=== PATIENT | female | born 1970 | race Caucasian/White ===

== ENCOUNTER 2023-03-03 07:31 | Outpatient (CLI) | payer OTHER, SELFPAY | END 2023-03-03 07:32 | disposition home or self-care (01) | LOC: NFLDREF 03-04 11:14 | PROVIDERS: PCP Physician Assistant Medical; Referring Provider Physician Assistant Medical; Visit Provider Physician Assistant Medical | DX: R73.03 Prediabetes (principal); R79.89 Other specified abnormal findings of blood chemistry; Z13.6 Encounter for screening for cardiovascular disorders; Z13.29 Encounter for screening for other suspected endocrine disorder; Z13.9 Encounter for screening, unspecified | CPT/HCPCS: 80053; 80061; 82306; 84443 ==

== ENCOUNTER 2023-04-27 09:26 | Outpatient (CLI) | payer OTHER, SELFPAY | END 2023-04-27 09:27 | disposition home or self-care (01) | LOC: INJ CL 09:29 | PROVIDERS: PCP Physician Assistant Medical; Visit Provider Family Medicine | DX: M54.16 Radiculopathy, lumbar region (principal); M48.062 Spinal stenosis, lumbar region with neurogenic claudication | CPT/HCPCS: 64483; J1100; Q9966 ==

== ENCOUNTER 2023-06-23 14:42 | Outpatient (CLI) | payer OTHER, SELFPAY ==
--- NOTE | 2023-06-23 15:00 | CT_ITS ---
Patient: ANA SIM Facility:?[facility] Patient ID:?[id number] Site Patient ID:?[id number]. Site :?[id number] Study:?CT-Abdomen/Pelvis W/ 78CC ISOVUE 370-06/23/2023 4:07:03 PM Ordering Physician:TRAVIS Final Report: Indication: FREQUENT URINATION, ABD PAIN Technique: CT Abdomen/Pelvis W/ 78CC ISOVUE 370 Please note that all CT scans at this facility use dose modulation, iterative reconstruction, and/or weight-based dosing when appropriate to reduce radiation dose to as low as reasonably achievable. Comparison: None Findings: Visualized breast implants are intact. Dependent scarring is present in both lower lobes. Additional scarring within the right middle lobe. No pleural effusion. No suspicious intrahepatic lesion. Incidental fat deposition within the liver adjacent to the falciform ligament. Mild diffuse hepatic steatosis. Spleen is not enlarged. Splenules are incidentally noted. The pancreas is within normal limits. Gallbladder incompletely distended. No biliary obstruction or calcified gallstone. Adrenal glands are normal. 1 cm simple cyst posterior left kidney. Extrarenal pelvis on the right. No hydronephrosis or renal stone. The bladder is normal. Uterus is unremarkable. Normal ovaries. No free air, free fluid or adenopathy. The ureters are within normal limits. Increased stool is present within the right side of the colon. No bowel obstruction or inflammation. No fracture. Degenerative disc disease L2-3. Impression: No hydronephrosis or urinary tract stone. Normal bladder. Increased stool in the right colon could suggest constipation. No mechanical bowel obstruction or inflammatory change. Mild hepatic steatosis. Please note that all CT scans at this facility use dose modulation, iterative reconstruction, and/or weight-based dosing when appropriate to reduce radiation dose to as low as reasonably achievable. Dictated by Jose Hammonds MD @ 06/24/2023 9:31:35 AM Signed by:?Jose Hammonds MD @06/24/2023 9:31:35 AM (Electronic Signature)
== END 2023-06-23 14:43 | disposition home or self-care (01) ==
LOC: CT 14:43
PROVIDERS: PCP Physician Assistant Medical; Visit Provider Physician Assistant Medical
DX: R10.32 Left lower quadrant pain (principal); K76.0 Fatty (change of) liver, not elsewhere classified; R35.0 Frequency of micturition
CPT/HCPCS: 74177; Q9967

== ENCOUNTER 2023-06-29 09:07 | Outpatient (CLI) | payer OTHER, SELFPAY | END 2023-06-29 09:08 | disposition home or self-care (01) | PROVIDERS: PCP Physician Assistant Medical; Visit Provider Physician Assistant Medical | DX: N30.00 Acute cystitis without hematuria (principal); R73.03 Prediabetes; R79.89 Other specified abnormal findings of blood chemistry | CPT/HCPCS: 80053; 84443; 87086 ==

== ENCOUNTER 2023-07-13 09:32 | Outpatient (CLI) | payer OTHER, SELFPAY | END 2023-07-13 09:33 | disposition home or self-care (01) | LOC: INJ CL 09:33 | PROVIDERS: PCP Physician Assistant Medical; Visit Provider Family Medicine | DX: M54.16 Radiculopathy, lumbar region (principal); M48.062 Spinal stenosis, lumbar region with neurogenic claudication | CPT/HCPCS: 64483; J1100; Q9966 ==

== ENCOUNTER 2023-07-28 00:23 | Emergency (ER) | payer OTHER, SELFPAY ==
[2023-07-28 00:31] VITALS: BP 151/90; PULSE 67; RESP 16; TEMP 36.6; O2SAT 98; BMI 23.5
--- NOTE | 2023-07-28 00:59 | ED.GENADULT ---
HPI - General Adult General Chief complaint: Extremity Pain/Injury, Lower Stated complaint: Bump on foot(Right) Time Seen by Provider: 07/28/23 00:25 Source: patient Mode of arrival: ambulatory Limitations: no limitations History of Present Illness HPI narrative: Patient presents to the emergency department for intermittent pain for the last few weeks on the lateral right foot, no trauma or injury. Pain seems to be getting more consistent. She called the nurse line and was advised to come to the emergency department in the wee hours for this. Did not try taking any Tylenol or ibuprofen prior to coming to the ED. no prior history of foot surgery. She does have osteoarthritis in multiple sites including neck and lumbar spine. She states that she regularly exercises on a stationary bike about 45 minutes per day and does not wear any foot were of any kind with this. She does not wear shoes indoors. She has no history of gout, no pain at the base of the 5th metatarsal or the 1st metatarsal area, heel or hindfoot. Pain is located at the lateral midfoot, proximal and slightly dorsal to the base of the 5th metatarsal. Worse with direct palpation, pinpoint. No weakness, no ankle pain. She states that she does get some numbness in both feet but that is an ongoing issue which she believes is related to her lumbar spinal stenosis. No fever, redness, drainage or rash. Past medical history notable for migraines, lumbar and cervical stenosis. Home meds are gabapentin for migraine prevention, tripped hands p.r.n. and currently on a short course of prednisone for cervical stenosis. She also takes an oral contraceptive. ROS is notable for the musculoskeletal symptoms as described above, no other generalized, skin or neurological changes different than her baseline. Related Data Home Medications Medication Instructions Recorded Confirmed migrerelief PO DAILY 06/29/23 07/06/23 Previous Rx's Medication Instructions Recorded gabapentin 300 mg capsule 600 mg (2 x 300 mg) PO TID 90 days 02/25/23 #540 caps triamcinolone acetonide 0.1 % 1 applic topical BID #15 grams 03/31/23 topical cream cyclobenzaprine 10 mg tablet 10 mg PO .COMPLEX #10 tabs 07/06/23 tolterodine 2 mg capsule,extended 2 mg PO QDAY #30 caps 07/07/23 release 24 hr (Detrol LA) norethindrone (contraceptive) 0.35 0.35 mg PO QDAY #84 tabs 07/19/23 mg tablet (Kristina-BE) Allergies Allergy/AdvReac Type Severity Reaction Status Date / Time misoprostol Allergy Uncoded 07/06/23 14:13 PFSH PFS Surgical History History of trigger finger ?Z87.39 - Personal history of other diseases of the musculoskeletal system and connective tissue (ICD-10) History of breast augmentation ?Z98.82 - Breast implant status (ICD-10) History of eye surgery ?Z98.890 - Other specified postprocedural states (ICD-10) History of ?Z98.891 - History of uterine scar from previous surgery (ICD-10) Social History Smoking Status: Never smoker How often do you have a drink containing alcohol: never AUDIT-C Alcohol total score: 0 Non-prescribed substance use: denies use Little interest or pleasure in doing things: several days Feeling down, depressed, or hopeless: nearly every day Exam Const: Vital Signs, click to edit/add: Vital Signs - 24 hr 07/28/23 00:31 Temperature 97.9 F Pulse Rate [Pulse Oximeter] 67 Respiratory Rate 16 Blood Pressure [Ri ght Upper Arm] 151/90 H Pulse Oximetry 98 Oxygen Delivery Me thod Room Air Documenting provider has reviewed patient's vital signs: yes Other: Mildly anxious but appropriate, good historian. HENMT: Other: Lips appear acyanotic with no dryness or pallor. Eye: Other: Normal eye contact and visual gaze Resp: Common normals: normal respiratory effort Effort & inspection: able to speak in complete sentences Cardio: Other: 2+ dorsalis pedis pulses bilaterally with normal capillary refill in the feet Extremity: Other: Left ankle and foot with normal range of motion. Mild osteoarthritic changes at 1st MTP joint, slightly at 5th as well. Some bony prominences along midfoot consistent with some early osteoarthritic changes. Good pulses, normal toes otherwise. Right ankle with normal range of motion, no redness, swelling or effusion. Mild enlargement of right 1st and 5th MTP joints. Consistent with osteoarthritis changes. No warmth, redness or severe pain with palpation. Normal toes. Area in question is the point bony tenderness at the base of the 4th metatarsal. Bony prominence like the other areas but also tenderness to palpation over tendons with a scant amount of fluid. No bruising. No warmth. No deformity. Other areas of bony prominence in midfoot consistent with osteoarthritis similar to left side. No tenderness over plantar fascia or heel. Neuro: Motor exam: no movement abnormalities noted Psych: Attitude: engaged Insight: insight good Judgement: judgment good Skin: Common normals: no rashes or lesions noted General skin exam: no rashes or lesions noted Course Course ED Course: Differential diagnosis including stress fracture, tendinitis, ganglion cyst, osteoarthritis, gout, pseudogout, septic arthritis, among others. Suspect tendinitis, osteoarthritis could be a very small ganglion cyst but not clinically significant enough at this point to warrant additional workup. Counseled patient on findings. No red flags of any emergent conditions tonight. She is likely to have recurrent issues in this area due to the developing osteoarthritis changes in her feet which are very common in women her age. Counseled on alarm symptoms. Recommended Tylenol 1000 mg every 6 hours as needed for pain. Okay to use [id number] NSAID patches. I think her main remedy to improvement is going to be compression socks and appropriate supportive footwear, especially with exercise. She should try this for 4 weeks and if not improving, follow up with her primary care provider for additional workup, potentially arch supports, orthotics, PT referral and or Podiatry. She verbalizes understanding and agreement and declines pain medications here in the ED. Vital Signs Vital signs: Initial Vital Signs Temperature 97.9 F 07/28/23 00:31 Temperature Source Temporal Artery Scan 07/28/23 00:31 Pulse Rate 67 07/28/23 00:31 Respiratory Rate 16 07/28/23 00:31 Blood Pressure 151/90 H 07/28/23 00:31 Blood Pressure Mean 110 H 07/28/23 00:31 Blood Pressure Position Sitting 07/28/23 00:31 Pulse Oximetry 98 07/28/23 00:31 Oxygen Delivery Method Room Air 07/28/23 00:31 Vital Signs Temperature 97.9 F 07/28/23 00:31 Pulse Rate 67 07/28/23 00:31 Respiratory Rate 16 07/28/23 00:31 Blood Pressure 151/90 H 07/28/23 00:31 Pulse Oximetry 98 07/28/23 00:31 Oxygen Delivery Method Room Air 07/28/23 00:31 Temperature 97.9 F 07/28/23 00:31 Pulse Rate 67 07/28/23 00:31 Respiratory Rate 16 07/28/23 00:31 Blood Pressure 151/90 H 07/28/23 00:31 Pulse Oximetry 98 07/28/23 00:31 Oxygen Delivery Method Room Air 07/28/23 00:31 Discharge Plan Discharge Clinical Impression: Foot tendinitis, Osteoarthritis of foot Patient Disposition: Home, Self-Care Condition: Stable Instructions: Metatarsalgia (DC) Additional Instructions: As we discussed, you have inflammation and irritation of a tendon on the outside of your foot. This is often secondary to overuse and improper or lack of supportive footwear. There may be a very small ganglion cyst associated with this but I think the problem is more so that the tendon is being irritated over an area of bony enlargement from osteoarthritis. As discussed, I recommend Tylenol 1000 mg up to every 6 hours as needed for bothersome pain. It is okay to use topical muscle rubs or topical NSAIDs even while using prednisone. The arthritis in your foot is not reversible but your symptoms can be markedly better with good foot care. I strongly recommend that you start wearing appropriate supportive footwear with all athletic activities and basic loin trimmer. The shoes should have good arch support. Many with this condition fine compressive athletic socks helpful. I happen to be a big fan of the sock well brand. You do not need knee-high once, ankle or crew height are fine. I would recommend medium to heavy compression. If the pain is still bothersome with 4 weeks of these interventions, I would recommend you make a follow-up appointment with a primary care provider or a engineering operator to discuss further treatment options. Activity Level: Activity as Tolerated Discharge Diet: Regular Prescriptions: No Action triamcinolone acetonide 0.1 % cream 1 applic topical BID Qty: 15 0RF Rx Instructions: apply twice daily for 2 to 4 weeks to right foot migrerelief PO DAILY gabapentin 300 mg capsule 600 mg PO TID 90 Days Qty: 540 3RF cyclobenzaprine 10 mg tablet 10 mg PO .COMPLEX Qty: 10 0RF Rx Instructions: 10 mg orally 1 po at hs; tolterodine [Detrol LA] 2 mg capsule,extended release 24hr 2 mg PO QDAY Qty: 30 0RF norethindrone (contraceptive) [Kristina-BE] 0.35 mg tablet 0.35 mg PO QDAY Qty: 84 3RF Follow Up/Referrals: Agnes Fleming PA-C [Primary Care Provider] - Stand Alone Forms: [employer] Info Instructions
== END 2023-07-28 01:05 | disposition home or self-care (01) ==
LOC: ED 01:02
PROVIDERS: Emergency Provider Family Medicine; PCP Physician Assistant Medical
DX: M77.51 Other enthesopathy of right foot and ankle (principal); M19.071 Primary osteoarthritis, right ankle and foot
CPT/HCPCS: 99282; 99283

== ENCOUNTER 2023-08-19 09:44 | Outpatient (CLI) | payer OTHER, SELFPAY | END 2023-08-19 09:45 | disposition home or self-care (01) | PROVIDERS: PCP Physician Assistant Medical; Visit Provider Registered Nurse | DX: Z01.419 Encounter for gynecological examination (general) (routine) without abnormal findings (principal); Z83.2 Family history of diseases of the blood and blood-forming organs and certain disorders involving the immune mechanism; Z12.4 Encounter for screening for malignant neoplasm of cervix | CPT/HCPCS: 81240; 81241 ==

== ENCOUNTER 2023-09-08 10:30 | Outpatient (RCR) | payer OTHER, SELFPAY ==
--- NOTE | 2023-07-19 17:08 | PT.OPE ---
PT [facility] PT [facility] Out[facility] Eval Start: 07/19/23 13:22 Freq: Status: Active Protocol: Document 07/19/23 15:36 LSL (Rec: 07/19/23 17:03 LSL [id number]) E-signed By Marie Howell PT Physical Therapy Outpatient Evaluation Insurance Information Recert Due Date 10/17/23 Insurance Name Medicaid,[facility] Medical Diagnosis cervical radiculopathy, cervicalgia Referring MD Naveen Garrison PA-C Subjective Subjective Pt. reports insidious onset of a zappy numbness or sharp pain down the arm. Positions with arm abducted and hor abducted or ER reproduce that pain. Seeing Dr. Rizzo tomorrow for her neck. She has been seeing him for her LB and legs. Pt. is R hand dominant. Symptoms are transient and last about a minute. Has not noticed any strength loss in her hand. My entire adult life I get an aura and see farooq when I shave my L armpit so I just try and do it without looking. Date of Last Physician Visit 07/06/23 Current Work Status Unemployed Precautions Weight Bearing Status Full Weight Bearing Objective Range of Motion AROM Cervical flexion WNL, B LF 50% with pain in the neck and upper back, extension 80% with pain in the neck, L rotation 30%, R rotation 40% Shoulders WFL Strength Cervical all 5/5 with twinge in L C-T junction paraspinals on R rotation Shoulder - L elbow, wrist 5/5, L supraspinatus 3+/5, R 4-/5, horizontal abduction and adduction 4+/5, deltoid 4/5 ROUTE DRIVER L 65/66/59 pounds of pressure R 60/55/59 pounds of pressure PINCH L 11/10/10.5 pounds of pressure R 10/9/8.5 pounds of pressure Palpation L scalenes, L UT, L cervical paraspinals tender and L subscap tight and tender Posture decreased kyphosis Sensation/Reflexes Compression and distraction negative Reflexes - intact L UE Assessment Assessment/Impression Pt. is a 52 y/o female who presents with decreased curvature in the upper thoracic spine which may be attributable to age related degenerative changes with tightness in the L cervical and thoracic region and weakness in the L supraspinatus and tightness in the R subscapularis both of which may be contributing to radicular symptoms. These symptoms are currently very intermittent and there is no correlated weakness. She has a history of cervical issues and migraines. Currently it appears that some weakness in the L RC is contributing to some tension in the scapulothoracic/cervical musculature which is pulling on her cervical spine and potentially creating some radicular symptoms. They are transitory and should respond well to a combination of mobility and strength exercises, with manual therapy for soft tissue and joint mobilization. Primary Functional Limitations looking down and to left, reaching out to the side with L arm Plan of Care Rehabilitation Potential Good Physical Therapy Goals SHORT TERM GOALS: (4 weeks) 1. Pt. to report decreased symptoms into L UE with reaching to her side to less than 1x/day. 2. Decreased tension in the L subscap to allow decreased pain going into abducted ER. LONGTERM GOALS: (6+ weeks) 1. Pt. to have 5/5 L RC strength to decrease tension into L cervical region when reaching. 2. Pt. able to look down and to the left without dizziness or farooq. Coordination/Communication With Referral Source Treatment Plan/Direct Interventions Joint Mobilization,Manual Therapy,Self-Care/Home Management,Therapeutic Exercises Frequency/Duration 1x/week 4 weeks to start potentially extending to 6 weeks or 2x/week Patient Will Be Discharged From Therapy Completion of LTG(s),Skills Plateau,Independent w/HEP, Independently Progressing Evaluation Billing Untimed Code Treatment Minutes 40 Complexity Low Certification Information Initial Certification Date 07/19/23 Ending Certification Date 10/17/23 Provider Signature Shows Agreement With POC & Medical Necessity Physician Signature & Date Requested Please Sign/Date Here Physician Comment/Change : Physician NPI Number #
== END 2023-09-08 12:15 | disposition home or self-care (01) ==
PROVIDERS: PCP Physician Assistant Medical; Visit Provider Physician Assistant
DX: M54.12 Radiculopathy, cervical region (principal); M54.2 Cervicalgia; R53.1 Weakness; Z51.89 Encounter for other specified aftercare
CPT/HCPCS: 97110; 97140; 97161

== ENCOUNTER 2023-12-21 08:40 | Outpatient (CLI) | payer OTHER, SELFPAY ==
--- OUTSIDE RECORDS SUMMARY | 2023-12-21 08:42 | XMS_ITS | Continuity of Care Document ---
Author Organization [place] - [facility], [place] Address [address] [place] [address] Care Team Providers Care Sales Representative Livestock Name Role Phone TONIA YEPEZ Referring Provider [facility] Dentist [phone] HOUSTON ESPINOSA Primary Care Provider Assessment Encounter Date Assessment Date Assessment LastModified by Organization Details LastModified Time 09/30/2023 09/30/2023 Today I reviewed the diagnosis, contributing factors and treatment options. I reviewed and reinforced continued use of self care and jaw exercises. I encouraged daily home care use which may consist of heat and ice compresses, oral habit reduction and relaxation techniques. The intraoral appliance was adjusted to patient comfort. Specifically, I demonstrated and advanced the appliance by 1 mm bilaterally. Ruth reported it being comfortable to wear it. 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 Rehabilitation with physical therapy could be an options if TMD/muscular symptoms flared. History today was obtained from the patient. The patient has 5 diagnoses which we are addressing. Their symptoms are chronic. This case is moderate complexity because of multiple diagnoses with chronic symptoms. Risk of complications include monitoring for complications of treatment were discussed. Today time spent may have included a review of past records, history taking, review of diagnoses, contributing factors, treatment plan, diagnostic testing, prognosis, expectations, risks and complications of treatment/no treatment, discussions with other providers and completing documentation was 25 minutes. I suggested that (s)he return for follow-up care in 4 weeks. [email or web address] Not available 09/30/2023 22:39:18 Plan of Treatment Reminders Order Date Submit Date Provider Last Modified By Organization Details Last Modified Time Details Appointments None record ed. Lab None record ed. Referral None record ed. Procedures None record ed. Surgeries None record ed. Imaging None record ed. Medication Orders None record ed. Patient TargetsNo targets recorded. Patient InstructionsNo instructions recorded. Reason for Referral None Reported. 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 689538914765 96948 Active 2023 LIANNA Ma DDS,MS [address], [place], [address], [facility] 4 18:39:03 Pain of right temporoma ndibular joint 334925916504 22123 Active 2023 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 Procedures Surgical History Date Name Laterality Status Provider Name and Address Organization Details Recorded Time 07/01/19 24 Oral appliance therapy for sleep apnea completed Monse Hollins [facility] 06/30/2023 10:43:52 05/19/19 Orthopantogram completed LIANNA ISAAC DDS,MS [address], [place], [address], [facility] 05/19/2023 18:40:32 03/22/19 04 section completed Monse Hollins [facility] 05/19/2023 17:24:26 Breast augmentation w/implt completed Monse Hollins [facility] 05/19/2023 14:14:33 Imaging Results None recorded. Procedure Notes None recorded. Medical Equipment None Reported. Allergies Allergen ID Allergen Name Allergen Category Reaction Reaction Severity Criticality Documentation Date Start Date Code Code System Note Provider Name and Address Organization Details Recorded Time 91006 misoprost ol medicatio n Not available Not available Not available 05/19/2023 66283 RxNorm Monse Hollins [facility] 14:11:52 Medications Name Sig Start Date Stop Date Status Note LastModified by Organization Details LastModified Time tolterodine ER 2 mg capsule,ext ended release 24 hr TAKE ONE CAPSULE BY MOUTH EVERY DAY 08/29 completed Not Available Not Available Not Available cyclobenzap rine 10 mg tablet TAKE ONE TABLET BY MOUTH EVERY DAY AT BEDTIME 08/03 completed Not Available Not Available Not Available sumatriptan 100 mg tablet TAKE 1 TABLET BY MOUTH AT ONSET OF HEADACHE. IF NO RELIEF, MAY REPEAT 1 TABLET AFTER AT LEAST 2 HOURS (MAX 2 IN 24HRS) active Not Available Not Available No t Available prednisone 20 mg tablet TAKE TWO TABLETS BY MOUTH EVERY DAY FOR 5 DAYS active Not Available Not Available No t Available triamcinolo ne acetonide 0.1 % topical cream APPLY CREAM TOPICALLY TO RIGHT FOOT TWICE DAILY FOR 2-4 WEEKS active Not Available Not Available No t Available cephalexin 500 mg capsule TAKE ONE CAPSULE BY MOUTH TWICE A DAY FOR 7 DAYS 08/03 completed Not Available Not Available Not Available oxybutynin chloride ER 5 mg tablet,exte nded release 24 hr TAKE ONE TABLET BY MOUTH EVERY DAY 08/29 completed Not Available Not Available Not Available gabapentin 300 mg capsule TAKE 2 CAPSULES BY MOUTH THREE TIMES DAILY FOR 90 DAYS active Not Available Not Available No t Available norethindro ne (contracept олег) 0.35 mg tablet TAKE ONE TABLET BY MOUTH EVERY DAY 09/29 completed Not Available Not Available Not Available sumatriptan active Not Available Not A vailable Not Available Vitals Date Recorded Body height Body mass index (BMI) Body weight Systolic blood pressure Diastolic blood pressure Provider Name and Address Organization Details Last Updated DateTime 09/30/2023 165.1 cm 25.8 kg/m2 47930.82 g 114 mm[Hg] 78 mm[Hg] Linh Saenz [facility] 10:09:08 Social History Question Answer Notes LastModified by Organizat ion Details LastModified Time Tobacco Smoking Status [facility] 05/19/2023 17:24:03 What Is Your Level Of Alcohol Consumption? None Information not available 05/19/2023 What Is Your Level Of Caffeine Consumption? Moderate [email or web address] Information not available 05/19/2023 Are You Currently Employed? No Information not available 05/19/2023 What Type Of Diet Are You Following? REGULAR [email or web address] Information not available 05/19/2023 What Is The Highest Grade Or Level Of School You Have Completed Or The Highest Degree You Have Received? [id number] [email or web address] Information not available 05/19/2023 What Is Your Relationship Status? Single [email or web address] Information not available 05/19/2023 Sex: Unknown Functional Status Question Answer Note LastModified by Organization D etails LastModified Time What is your exercise level? Moderate [email or web address] Information not available 05/19/2023 Mental Status None recorded. Family History Relationship Description Onset Age of this Age Resolved Age Notes LastModified by Organization Details LastModified Time Father Arthritis Not availab le 05/19/2023 17:22:49 Father Heart disease [email or web address] Not available 2023 17:23:01 Father Rheumatoid arthritis Not available 2023 17:23:19 Mother Hypertensive disorder [email or web address] Not available 2023 17:23:08 Medical History Condition Response Coronary Artery Disease N Other Y Gout N Chronic fatigue syndrome N Hyperthyroidism N Premenstrual syndrome (PMS) N MRSA N Emphysema N Head Trauma/Injury N Irritable bowel syndrome N COPD N Depression Y Glaucoma N Lung Disease N Hypothyroidism N Pneumonia N Pacemaker N Orthopedic Problems N Obstructive Sleep Apnea Y Anxiety Disorder N Muscle, Joint, or Bone Problems N Autoimmune disease N Vision or Eye Problems N Arthritis N Serious Illness or Injuries N Acid Reflux (GERD) N Cancer N Stroke N Neck Injury N Eating disorder N Back Injury N High Cholesterol N Neurologic Disorder N History of chemotherapy N Liver Disease N Organ Transplant N Rheumatoid Arthritis N Fibromyalgia N Headaches Y Kidney Disease N Allergies/Hayfever N Post traumatic stress disorder (PTSD) N Parkinson's Disease N Migraines Y Thyroid Problems N Brain Tumors N Anemia N Multiple Sclerosis N Immune System Disorder N Meningitis N Pancreatic disease N Heart Attack (NM) N Stomach Ulcers N Diabetes N Back pain Y Bleeding Disorder N Seizures/Epilepsy N Sjogren's syndrome N Tuberculosis N AIDS/HIV N Hyperlipidemia N History of radiation therapy N Dementia N Asthma N Physical or sexual abuse N Substance Abuse N Psoriasis N Peripheral Vascular Disease N Reflux/GERD N Mental Problems N Vertigo N Sleep Disorder N GERD/Reflux N Hepatitis N Aneurysm N Neuropathy N Heart Disease N Pulmonary Embolism N Hypertension N Osteoporosis N Gynecological HistoryNo gynecological history recorded. Obstetrics History GPAL:G 0 P 0 0 0 0 Past Encounters Encounter ID Performer Location Encounter Start Date Encounter Closed Date Diagnosis/Indication Diagnosis SNOMED-CT Code Diagnosis ICD10 Code [id number] LIANNA ISAAC DDS,MS George javed [address] [place] [address] 09/30/2023 09:59:51 09/30/2023 10:28:35 Obstructive sleep apnea syndrome 49580323 G47.33 Myofascial pain 51429143 9 M79.11 Pain of ri ght temporomandibular joint 0627524768 7783074 M26.621 Bilateral temporomandibular joint articular disc disorder 7878928083 6380974 M26.633 Snoring 00275339 R06.83 Health Concerns Section Related Observation LastModified by Organization Detai ls LastModified Time None Recorded Concern Status LastModified by Organization Details LastModified Time None Recorded Payers Encounter Date Sequence Insurance Name Policy Number Policy Miller Covered Member ID Miller Member ID Guarantor Name 09/30/2023 1 [place] [facility] [id number] Ruth Ohara [id number] Ruth Ohara Notes Date Note Type Note Provider Name and Address Organization Details Recorded Time 09/30/2023 text/html HPI Notes: Sleep Apnea Reported by patient. Severity/status: moderate; severity of apnea: AHI=16.7; date of last [id number]; respiratory disturbance index (RDI)= 18.6; lowest oxygen saturation 80-91% 84; MICH-8.3 Onset/Timing: long standing Prior History no hypertension temporomandibular joint symptoms no temporomandibular joint symptoms Interference: no loud snoring; no witnessed apnea; no gasping for air; limits daily activities; morning tiredness/fatigue Context: lack of adequate sleep; currently taking medication to help sleep; irregular sleep hours Alleviating factors: nothing gives relief; no relief by changing position Aggravating factors: nothing makes it worse; medical problems affecting sleep pain (migraines) Associated Symptoms: morning headache; drip or drainage down throat from above; excessive sleepiness during the day; poor concentration; impaired work performance; nasal congestion; likelihood of falling asleep during the day while sitting and reading 1; likelihood of falling asleep during the day while watching television 1; likelihood of falling asleep during the day while sitting inactive in a public place 3; likelihood of falling asleep during the day as passenger in car for extended time 3; likelihood of falling asleep during the day while lying down to rest in the afternoon 1; likelihood of falling asleep during the day while sitting and talking to someone 2; likelihood of falling asleep during the day while sitting quietly after lunch (no alcohol) 1; likelihood of falling asleep during the day in a car while stopped in traffic 1 Prior opinion ENT Prior Tests: home sleep study Patient presents today for follow-up. (S)he is effectively using the mandibular advancement oral appliance. They note no changes in symptoms which along with prior data was reviewed, updated and documented in the patient history of present illness. Subjectively they believe the appliance to be partially effective in improving sleep quality. (S)he recognizes unchanged daytime tiredness and no improvement in restorative sleep. (S)he has mild side effects including jaw pain. (S)he is not using the morning bite real estate job titles as recommended. Adjustments to the oral appliance are not felt necessary. Ruht is present her for her third follow up after receiving her DELMI ([place]). She uses the appliance nightly without issues. Jaw pain has subsided and when it occurs is described as minimal jaw symptoms that resolve after a short period of time. 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 She does noticed that her jaw resets naturally. She denies dental occlusal changes and dental pain. She is doing home care exercises. [place] - 15 LIANNA ISAAC DDS,MS [address], [place], [address], [facility] 09/30/2023 22:40:22 OBGyn Episode No OBEpisode recorded.
--- OUTSIDE RECORDS SUMMARY | 2023-12-21 08:42 | XMS_ITS | Data Portability ---
Author Organization [place] [facility] Address [address] [address] Care Team Providers Care Volleyball Player Name Role Phone TONIA YEPEZ Referring Provider [facility] Dentist [phone] HOUSTON ESPINOSA Primary Care Provider [phone] Assessment Encounter Date Assessment Date Assessment LastModified by Organization Details LastModified Time 07/01/2023 07/01/2023 Patient was seen today for follow-up and insertion of a mandibular advancement (Somnomed [place] Advanced Elite) intraoral appliance. Diagnosis and contributing factors were reviewed. Questions were answered. Self-management and home exercise techniques were reviewed. Today the intraoral appliance was fit to patient comfort. Specifically, adjustments were made to reduce retention in the maxillary arch. Ruth reported it being comfortable to wear it. Instructions on proper use and care were discussed/reviewed both written and verbally. I suggested that (s)he uses the appliance 20-30 minutes before bed time, as a way to promote nasal breathing if possible. Potential side effects were reviewed. The patient was advised to discontinue oral appliance use should they experience untoward side effects or be unable to return for follow-up care. The patient was advised to return in 4 weeks to reassess their progress and continue their treatment plan as previously outlined. History today was obtained from the patient. The patient has 3 diagnoses they would like to address. Their symptoms are chronic. This case is low complexity because of limited diagnosis and chronic nature. Data reviewed included procedure documentation. Risk of complications include monitoring for complications of treatment were discussed. Today time spent may have included a review of past records, history taking, review of diagnoses, contributing factors, treatment plan, diagnostic testing, prognosis, expectations, risks and complications of treatment/no treatment, discussions with other providers and completing documentation was 30 minutes. Not available 07/01/2023 10:55:44 08/04/2023 08/04/2023 Today I reviewed the diagnosis, contributing factors and treatment options. I reviewed and reinforced continued use of self care and home exercises. I encouraged daily home care use which may consist of heat and ice compresses, oral habit reduction and relaxation techniques. The intraoral appliance was adjusted to patient comfort. Specifically, I demonstrated and advanced the appliance by 1 mm. Ruth reported it being comfortable to wear it. To manage her recent TMD/muscular symptoms, I have recommended self management treatment approach with home self-care, including heat compresses, simple jaw exercises including jaw stretch with relaxed breathing and masseter/lateral pterygoid self-release exercise. I also recommended that she try wearing the study abroad coordinator later in the day instead of first thing in the morning if it is causing pain, and to continue to take breaks from wearing the appliance. We will consider rehabilitation with physical therapy if symptoms are not improved with self-management treatment approach. History today was obtained from the patient. [...] return for follow-up care in 4 weeks. Not available 08/04/2023 19:14:53 08/30/2023 08/30/2023 Today I reviewed the diagnosis, contributing factors and treatment options. I reviewed and reinforced continued use of self care and home exercises. I encouraged daily home care use which may consist of heat and ice compresses, oral habit reduction and relaxation techniques. The intraoral appliance was adjusted to patient comfort. Specifically, I reduced the retention of the appliance in the region of tooth #31 since it was applying pressure to her dental crown.??Ruth??repo rted it being comfortable to wear it. We did not make advancements to the appliance today. To continue managing her TMD muscular symptoms, I encouraged??Ruth?? to be consistent with daily jaw exercises (including lateral pterygoid) and to try wearing the study abroad coordinator a few times during the day. She will continue to put the oral appliance in well before bed and practice nasal breathing with it. History today was obtained from the patient. [...] return for follow-up care in 4 weeks. Not available 08/30/2023 20:58:59 09/30/2023 09/30/2023 Today I reviewed the diagnosis, [...] weeks.??I recommended that she try wearing the study abroad coordinator later in the day instead of first [...] return for follow-up care in 4 weeks. Not available 09/30/2023 22:39:18 10/28/2023 10/28/2023 Today I reviewed the diagnosis, contributing factors and treatment options. I reviewed and reinforced continued use of self care and home exercises. I encouraged daily home care use which may consist of heat and ice compresses, oral habit reduction and relaxation techniques. The intraoral appliance did not require additional adjustment. It is set to 4 mm bilaterally. Ruth tried oral appliance therapy and developed jaw pain. Options to move forward were discussed including options to address the jaw pain (including rehabilitation with physical therapy) to allow for continued oral appliance use and discontinuation of oral appliance therapy and trial CPAP. Ruth has chosen to discontinue oral appliance and trial CPAP. She was advised to return to her sleep physician. Should she be unable to tolerate CPAP and would like to return to oral appliance she was invited to return at any time. In the meantime, I recommended continued home self-care as a way to manage her jaw symptoms. History today was obtained from the patient. [...] providers and completing documentation was 25 minutes. Not available 10/28/2023 10:52:35 Plan of Treatment Reminders Order Date Submit [...] Recorded Time Obstructi ve sleep apnea syndrome 67298757 Active 2023 Moderate VINNY (AHI - 16.7, RDI - 18.6, MICH - 8.3, Lowest Sa02: 84%, HST on 3) LIANNA Ma DDS,MS [address], [place], [address], 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 4 19:13:35 Myofascia l pain 119489048 Active 2023 masticato ry - secondary to use of oral sleep appliance LIANNA Ma DDS,MS [address], [place], [address], [facility] 4 19:13:29 Notes:Moderate VINNY AHI-16.7/ hr RDI-18.6/hr MICH-8.3/hr low O2 -84% sleep study 09-15-2022 Problem Notes None recorded. Procedures Surgical History Date Name Laterality Status Provider Name and Address Organization Details Recorded Time 07/01/19 24 Oral appliance therapy for sleep apnea completed Monse Hollins [facility] 06/30/2023 10:43:52 05/19/19 24 Orthopantogram completed LIANNA ISAAC DDS,MS [address], [place], [address], [facility] 05/19/2023 18:40:32 03/22/19 04 section completed Monse Leavittjolene [facility] 05/19/2023 17:24:26 Breast augmentation w/implt completed Monse Leavittjolene [facility] 05/19/2023 14:14:33 Imaging Results None recorded. Procedure Notes None recorded. Medical Equipment None Reported. Allergies Allergen ID Allergen Name Allergen Category Reaction Reaction Severity Criticality Documentation Date Start Date Code Code System Note Provider Name and Address Organization Details Recorded Time 23621 misoprost ol medicatio n Not available Not available Not available 05/19/2023 04912 RxNorm Monse Hollins lyric [facility] 14:11:52 Medications [...] Not Available Vitals Date Recorded Body height Heart rate Systolic blood pressure Diastolic blood pressure Provider Name and Address Organization Details Last Updated DateTime 07/01/2023 165.1 cm 55 /min 122 mm[Hg] 84 mm[Hg] Monsedebora Leavittjolene [facility] 07/01/2023 10:15:02 Date Recorded Body height Provider Name an d Address Organization Details Last Updated DateTime 08/04/2023 165.1 cm Monsedebora Ramireznick [facility] 08/04/2023 16:54:36 Date Recorded Body height Heart rate Systolic blood pressure Diastolic blood pressure Provider Name and Address Organization Details Last Updated DateTime 08/30/2023 165.1 cm 49 /min 122 mm[Hg] 82 mm[Hg] Apolinar Coppola [facility] 08/30/2023 15:08:40 Date Recorded Body height Body mass index (BMI) Body weight Systolic blood pressure Diastolic blood pressure Provider Name and Address Organization Details Last Updated DateTime 09/30/2023 165.1 cm 25.8 kg/m2 97194.82 g 114 mm[Hg] 78 mm[Hg] Linh Saenz [facility] 4 10:09:08 Date Recorded Body height Body mass index (BMI) Body weight Systolic blood pressure Diastolic blood pressure Provider Name and Address Organization Details Last Updated DateTime 10/28/2023 165.1 cm 25.8 kg/m2 87651.82 g 121 mm[Hg] 90 mm[Hg] Linh Saenz [facility] 4 10:07:10 Social History Question Answer Notes LastModified by Organizat ion Details LastModified Time Tobacco Smoking Status Never Smoker [facility] 05/19/2023 17:24:03 What Is Your Level Of Alcohol Consumption? None [email or web address] Information not available 05/19/2023 What Is Your Level Of Caffeine Consumption? Moderate [email or web address] Information not available 05/19/2023 Are You Currently Employed? No [email or web address] Information not available 05/19/2023 What Type Of Diet Are You Following? REGULAR [email or web address] Information not available 05/19/2023 What Is The Highest Grade Or Level Of School You Have Completed Or The Highest Degree You Have Received? [id number] [email or web address] Information not available 05/19/2023 What Is Your Relationship Status? Single [email or web address] Information not available 05/19/2023 Sex: Unknown Functional Status Question Answer Note LastModified by Organization D etails LastModified Time What is your exercise level? Moderate Information not available 05/19/2023 Mental Status None recorded. Family History Relationship Description Onset Age of this Age Resolved Age Notes LastModified by Organization Details LastModified Time Father Arthritis [email or web address] Not availab le 05/19/2023 17:22:49 Father Heart disease [email or web address] Not available 2023 17:23:01 Father Rheumatoid arthritis [email or web address] Not available 2023 17:23:19 Mother Hypertensive disorder [email or web address] Not available 2023 17:23:08 Medical History Condition Response Coronary Artery Disease N Other Y Gout N Chronic fatigue syndrome N Hyperthyroidism N Premenstrual syndrome (PMS) N MRSA N Emphysema N Head Trauma/Injury N Irritable bowel syndrome N Glaucoma N Lung Disease N COPD N Depression Y Hypothyroidism N Pneumonia N Pacemaker N Orthopedic [...] Meningitis N Pancreatic disease N Heart Attack ([place]) N Stomach Ulcers N Back pain Y Diabetes N Bleeding Disorder N Seizures/Epilepsy N Sjogren's syndrome N Tuberculosis N AIDS/HIV N History of radiation therapy N Hyperlipidemia N Dementia N Asthma N Physical or sexual abuse N Substance Abuse N Peripheral Vascular Disease N Psoriasis N Reflux/GERD N Mental Problems N Vertigo N Sleep Disorder N GERD/Reflux N Aneurysm N Hepatitis N Heart Disease N Neuropathy N Pulmonary Embolism N Hypertension N Osteoporosis N Gynecological HistoryNo gynecological history recorded. Obstetrics History GPAL:G 0 P 0 0 0 0 Past Encounters Encounter ID Performer Location Encounter Start Date Encounter Closed Date Diagnosis/Indication Diagnosis SNOMED-CT Code Diagnosis ICD10 Code [id number] LIANNA ISAAC DDS,MS [place] [address] [place] [address] 05/19/2023 17:16:29 05/19/2023 17:53:09 Obstructive sleep apnea syndrome 91881140 G47.33 Snoring 05165465 R06.83 Bilateral temporomandibular joint articular disc disorder 8155353178 2289977 M26.633 [id number] LIANNA ISAAC DDS,MS [place] [address] [place] [address] 07/01/2023 10:06:26 07/01/2023 10:49:46 Obstructive sleep apnea syndrome 75668713 G47.33 Snoring 39762248 R06.83 Bilateral temporomandibular joint articular disc disorder 2520220312 1062897 M26.633 [id number] LIANNA ISAAC DDS,MS [place] [address] [place] [address] 08/04/2023 16:29:07 08/04/2023 16:57:18 Obstructive sleep apnea syndrome 23288990 G47.33 Bilateral temporomandibular joint articular disc disorder 3848849044 7939136 M26.633 Snoring 75012113 R06.83 Pain of ri ght temporomandibular joint 7336445889 9786338 M26.621 Myofascial pain 99742112 9 M79.11 [id number] LIANNA ISAAC DDS,MS [place] [address] [place] [address] 08/30/2023 15:00:01 08/30/2023 15:37:03 Bilateral temporomandibular joint articular disc disorder 2425216919 7803636 M26.633 Obstructiv e sleep apnea syndrome 22615266 G47.33 Snoring 38676767 R06.83 Myofascial pain 47806359 9 M79.11 Pain of ri ght temporomandibular joint 8174570004 7446508 M26.621 [id number] LIANNA ISAAC DDS,MS [place] [address] [place] [address] 09/30/2023 09:59:51 09/30/2023 10:28:35 Obstructive sleep apnea syndrome 36227554 G47.33 Myofascial pain 85477001 9 M79.11 Pain of ri ght temporomandibular joint 1022138509 0042837 M26.621 Bilateral temporomandibular joint articular disc disorder 2781115783 6650093 M26.633 Snoring 84134682 R06.83 [id number] LIANNA SIMMONSFRANK WEBERS,MS [place] [address] [place] [address] 10/28/2023 10:00:15 10/28/2023 10:56:39 Obstructive sleep apnea syndrome 38306373 G47.33 Myofascial pain 24049768 9 M79.11 Pain of ri ght temporomandibular joint 7336226044 9341424 M26.621 Bilateral temporomandibular joint articular disc disorder 4485286645 5776310 M26.633 Snoring 25667948 R06.83 Health Concerns Section Related Observation LastModified by Organization Detai ls LastModified Time None Recorded Concern Status LastModified by Organization Details LastModified Time None Recorded Advance Directives Directive None Recorded Payers Encounter Date Sequence Insurance Name Policy Number Policy Miller Covered Member ID Miller Member ID Guarantor Name 07/01/2023 1 [employer] (PP[employer]) [id number] Ruth P Heddle [id number] Ruth P Heddle 08/04/2023 1 [employer]) [id number] Ruth P Heddle [id number] Ruth P Heddle 08/30/2023 1 [employer] ([employer]) [id number] Ruth P Heddle [id number] Ruth P Heddle 09/30/2023 1 [employer] (PPO) [id number] Ruth P Heddle [id number] Ruth P Heddle 10/28/2023 1 [employer] - INDIVIDUAL AND FAMILY (HMO) [id number] Ruth P Heddle [id number] Ruth P Heddle Notes Date Note Type Note Provider Name and Address Organization Details Recorded Time 07/01/2023 text/html HPI Notes: Sleep Apnea Reported by patient. Severity/status: moderate; severity of apnea: AHI=16.7; date of last [id number]; respiratory disturbance index (RDI)= 18.6; lowest oxygen [...] during the day while sitting and reading 0; likelihood of falling asleep during the day while watching television 1; likelihood of falling asleep during the day while sitting inactive in a public place 1; likelihood of falling asleep during the day as passenger in car for extended time 1; likelihood of falling asleep during the day while lying down to rest in the afternoon 3; likelihood of falling asleep during the day while sitting and talking to someone ; likelihood of falling asleep during the day while sitting quietly after lunch (no alcohol) 1; likelihood of falling asleep during the day in a car while stopped in traffic 0 Prior opinion ENT Prior Tests: home sleep study Patient presents today for insertion of a mandibular advancement (Somnomed [place] Advanced Elite) oral appliance. They note no changes in symptoms which along with prior data was reviewed, updated and documented in the patient history of present illness. (S)he describes compliance with home self care as previously recommended. LIANNA ISAAC DDS,MS [address], [place], [address], [facility] 07/01/2023 10:56:28 08/04/2023 text/html HPI Notes: Sleep Apnea Reported by patient. Severity/status: moderate; severity of apnea: AHI=16.7; date of last noeqfymvazqmket6-11-42; respiratory disturbance index (RDI)= 18.6; lowest oxygen [...] during the day while sitting and reading 3; likelihood of falling asleep during the day while watching television 3; likelihood of falling asleep during the day while sitting inactive in a public place 3; likelihood of falling asleep during the day as passenger in car for extended time 3; likelihood of falling asleep during the day while lying down to rest in the afternoon 3; likelihood of falling asleep during the day while sitting and talking to someone 1; likelihood of falling asleep during the day while sitting quietly after lunch (no alcohol) 1; likelihood of falling asleep during the day in a car while stopped in traffic 0 Prior opinion ENT Prior Tests: home sleep study Patient presents today for follow-up. (S)he is effectively using the mandibular advancement oral appliance. They note improved symptoms which along with prior data was reviewed, updated and documented in the patient history of present illness. Subjectively they believe the appliance to be effective in improving sleep quality. (S)he recognizes unchanged daytime tiredness and improvement in restorative sleep. (S)he has mild side effects including jaw pain. (S)he is using the morning bite study abroad coordinator as recommended. Adjustments to the oral appliance are not felt necessary. Ruth is present today for her first follow up appointment since the delivery of her DELMI ([place]). She notes worsening of daytime fatigue, but she has recently been dealing with neck/shoulder pain. She had a 10 day course of prednisone and noted that it disrupted her sleep. She also is doing PT for that. She notes that her sleep is still fragmented, but has noticed more deep sleep. Her Fitbit is showing similar information. She reports that her dental occlusion has returned to her normal occlusion after the first week of use of the oral appliance. She is wearing 4-5 days a week without issues. She denies dental pain. Upon awaking she has mild right-sided jaw pain that get better as the day progress. She is wearing the morning study abroad coordinator upon awakening but it is causing more pain/discomfort. Today's Floris:17 LIANNA ISAAC DDS,MS [address], [place], [address], [facility] 08/04/2023 19:15:52 08/30/2023 text/html HPI Notes: Sleep Apnea Reported by patient. Severity/status: moderate; severity of apnea: AHI=16.7; date of last deahbrvgccmooub9-91-82; respiratory disturbance index (RDI)= 18.6; lowest oxygen [...] during the day while sitting and reading 2; likelihood of falling asleep during the day while watching television 2; likelihood of falling asleep during the day while sitting inactive in a public place 2; likelihood of falling asleep during the day as passenger in car for extended time 2; likelihood of falling asleep during the day while lying down to rest in the afternoon 3; likelihood of falling asleep during the day while sitting and talking to someone 0; likelihood of falling asleep during the day while sitting quietly after lunch (no alcohol) 2; likelihood of falling asleep during the day in a car while stopped in traffic 1 Prior opinion ENT Prior Tests: home sleep study Patient presents today for follow-up. (S)he is using the mandibular advancement oral appliance. They note improved symptoms which along with prior data was reviewed, updated and documented in the patient history of present illness. Subjectively they believe the appliance to be partially effective in improving sleep quality. (S)he recognizes unchanged daytime tiredness and no improvement in restorative sleep. (S)he has mild side effects including jaw pain. (S)he is not using the morning bite study abroad coordinator as recommended. Adjustments to the oral appliance are not felt necessary. Ning is present for her second follow up with her [place] CRYS. She notes deeper sleep, but has not noticed change in daytime fatigue when she wears the oral appliance. She is still having multiple awakenings. She is using her appliance every other night to avoid jaw pain. She denies dental occlusal changes, and notes that her occlusion naturally returns to her natural occlusal by noon daily, which is why she is not using the morning study abroad coordinator. She is doing lat pt exercises about twice a week and recognizes that frequency could be improved. Floris-14/24 LIANNA ISAAC DDS,MS [address] [facility] [address], [place], [address], [facility] 08/30/2023 21:00:27 09/30/2023 text/html HPI Notes: Sleep Apnea Reported by patient. Severity/status: moderate; severity of apnea: AHI=16.7; date of last yninrixkqjkxguf7-56-11; respiratory disturbance index (RDI)= 18.6; lowest oxygen [...] (S)he is not using the morning bite study abroad coordinator as recommended. Adjustments to the oral appliance are not felt necessary. Ruth is present her for her third follow up after receiving her DELMI ([place]). She uses the appliance nightly without issues. Jaw pain has subsided and when it occurs is described as minimal jaw symptoms that resolve after a short period of time. She is not using her morning study abroad coordinator because it has caused increased of her jaw symptoms. She does noticed that her jaw resets naturally. She denies dental occlusal changes and dental pain. She is doing home care exercises. [place] - 15 LIANNA ISAAC DDS,MS [address] [address] [facility] [address], [place], [address], [facility] 09/30/2023 22:40:22 10/28/2023 text/html HPI Notes: Sleep Apnea Reported by patient. Severity/status: moderate; severity of apnea: AHI=16.7; date of last rbfotbrqphynsdv4-99-54 23; respiratory disturbance index (RDI)= 18.6; lowest oxygen [...] during the day while sitting and reading 3; likelihood of falling asleep during the day while watching television 3; likelihood of falling asleep during the day while sitting inactive in a public place 3; likelihood of falling asleep during the day as passenger in car for extended time 3; likelihood of falling asleep during the day while lying down to rest in the afternoon 3; likelihood of falling asleep during the day while sitting and talking to someone 1; likelihood of falling asleep during the day while sitting quietly after lunch (no alcohol) 2; likelihood of falling asleep during the [...] side effects including jaw pain. (S)he is using the morning bite study abroad coordinator as recommended. Adjustments to the oral appliance are not felt necessary. Ruth is present for a follow up with her Alfredito VINNY. This is her fourth visit. Ruth states she currently has a migraine. She states she is wearing it and moved it up (1 mm - current set at 4 mm bilaterally), but did not wear it for a while when she was sick with a cold. She does take it out about 5:30 am and goes back to sleep until 8:30 am. She does have mild jaw discomfort (not pain). She is wearing the study abroad coordinator in the afternoon. Not painful to wear in the afternoon. She notes that she is still tired all the time. [place] today: LIANNA ISAAC DDS,MS [address] [facility] [address], [place], [address], [facility] 10/28/2023 10:54:11 OBGyn Episode No OBEpisode recorded.
--- OUTSIDE RECORDS SUMMARY | 2023-12-21 08:42 | XMS_ITS | Continuity of Care Document ---
Author Organization [facility], [place] Address [address] [place] [address] Care Team Providers Care C4 Planner Name Role Phone TONIA YEPEZ Referring Provider [facility] Dentist [phone] HOUSTON ESPINOSA Primary Care Provider Assessment Encounter Date Assessment Date Assessment LastModified by Organization Details LastModified Time 10/28/2023 10/28/2023 Today I reviewed the diagnosis, [...] providers and completing documentation was 25 minutes. 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 009791846922 43959 Active 2023 LIANNA Ma DDS,MS [address], [place], [address], [facility] 4 18:39:03 Pain of right temporoma ndibular joint 972585864616 97168 Active 2023 Right TMJ arthralgi a - secondary to use of oral sleep appliance LIANNA Ma DDS,MS [address], [place], [address], [facility] 4 19:13:35 Myofascia l pain 714777830 Active 2023 masticato ry - secondary to use of oral sleep appliance LIANNA Ma DDS,MS [address] [facility] [address], [place], [address], [facility] 19:13:29 Notes:Moderate VINNY AHI-16.7/ hr RDI-18.6/hr MICH-8.3/hr low O2 -84% sleep study 09-15-2022 Problem Notes None recorded. Procedures Surgical History Date Name Laterality Status Provider Name and Address Organization Details Recorded Time 07/01/19 24 Oral appliance therapy for sleep apnea completed Monse Hollins [facility] 06/30/2023 10:43:52 05/19/19 Orthopantogram completed LIANNA ISAAC DDS,MS [address], [place], [address], [facility] 05/19/2023 18:40:32 03/22/19 04 section completed Monse Hollins [facility] 05/19/2023 17:24:26 Breast augmentation w/implt completed Monse Hollins [facility] 05/19/2023 14:14:33 Imaging Results None recorded. Procedure Notes None recorded. Medical Equipment None Reported. Allergies Allergen ID Allergen Name Allergen Category Reaction Reaction Severity Criticality Documentation Date Start Date Code Code System Note Provider Name and Address Organization Details Recorded Time 63870 misoprost ol medicatio n Not available Not available Not available 05/19/2023 83035 RxNorm Monse Hollins [facility] [...] Updated DateTime 10/28/2023 165.1 cm 25.8 kg/m2 16528.82 g 121 mm[Hg] 90 mm[Hg] Linh Saenz [facility] 10:07:10 Social History Question Answer Notes LastModified by Organizat ion Details LastModified Time Tobacco Smoking Status Never Smoker [facility] 05/19/2023 17:24:03 What Is Your Level Of Alcohol Consumption? None [email or web address] Information not available 05/19/2023 What Is Your Level Of Caffeine Consumption? Moderate [email or web address] Information not available 05/19/2023 Are You Currently Employed? No Information not available 05/19/2023 What Type Of Diet Are You Following? REGULAR [email or web address] Information not available 05/19/2023 What Is The Highest Grade Or Level Of School You Have Completed Or The Highest Degree You Have Received? [id number] [email or web address] Information not available 05/19/2023 What Is Your Relationship Status? Single [email or web address] Information not available 05/19/2023 Sex: Unknown Functional Status Question Answer Note LastModified by Organization D etails LastModified Time What is your exercise level? Moderate Information not available 05/19/2023 Mental Status None recorded. Family History Relationship Description Onset Age of this Age Resolved Age Notes LastModified by Organization Details LastModified Time Father Arthritis [email or web address] Not availab le 05/19/2023 17:22:49 Father Heart disease [email or web address] Not available 2023 17:23:01 Father Rheumatoid arthritis [email or web address] Not available 2023 17:23:19 Mother Hypertensive disorder [email or web address] Not available 2023 17:23:08 Medical History Condition Response Coronary Artery Disease N Other Y Gout N Chronic fatigue syndrome N Hyperthyroidism N Premenstrual syndrome (PMS) N MRSA N Emphysema N Head Trauma/Injury N Irritable bowel syndrome N Depression Y COPD N Glaucoma N Lung Disease N Hypothyroidism N [...] Meningitis N Pancreatic disease N Heart Attack ([place]) N Stomach Ulcers N Diabetes N Back [...] Diagnosis/Indication Diagnosis SNOMED-CT Code Diagnosis ICD10 Code [id number] LIANNA ISAAC DDS,MS [place] [place] [address] 09/30/2023 09:59:51 09/30/2023 10:28:35 Obstructive sleep apnea syndrome 30602392 G47.33 Myofascial pain 39737125 9 M79.11 Pain of ri ght temporomandibular joint 7045236317 3846655 M26.621 Bilateral temporomandibular joint articular disc disorder 7512769997 5705700 M26.633 Snoring 60947891 R06.83 [id number] LIANNA ISAAC DDS,MS [address] te[address] [place] [address] 10/28/2023 10:00:15 10/28/2023 10:56:39 Obstructive sleep apnea syndrome 89434975 G47.33 Myofascial pain 38720789 9 M79.11 Pain of ri ght temporomandibular joint 7638841733 9709137 M26.621 Bilateral temporomandibular joint articular disc disorder 6033490821 5959408 M26.633 Snoring 68778640 R06.83 Health Concerns Section Related Observation LastModified by Organization Detai ls LastModified Time None Recorded Concern Status LastModified by Organization Details LastModified Time None Recorded Payers Encounter Date Sequence Insurance Name Policy Number Policy Miller Covered Member ID Miller Member ID Guarantor Name 10/28/2023 1 [facility] (HMO) [id number] 1 Ruth Ohara [id number] Ruth Ohara Notes Date Note Type Note Provider Name and Address Organization Details Recorded Time 10/28/2023 text/html HPI Notes: Sleep Apnea Reported by patient. Severity/status: moderate; severity of apnea: AHI=16.7; date of last [id number]; respiratory disturbance index (RDI)= 18.6; lowest oxygen [...] pain. (S)he is using the morning bite lace roller as recommended. Adjustments to the oral appliance [...] discomfort (not pain). She is wearing the lace roller in the afternoon. Not painful to wear in the afternoon. She notes that she is still tired all the time. [place] today: LIANNA ISAAC DDS,MS [address] [facility] [address], [place], [address], [facility] 10/28/2023 10:54:11 OBGyn Episode No OBEpisode recorded.
--- OUTSIDE RECORDS SUMMARY | 2023-12-21 08:42 | XMS_ITS | Continuity of Care Document ---
Author Organization [facility] Address [address] [place] [address] Phone Care Team Providers Care Shaft Sinker Name Role Phone Shantelle QUINTANILLA, PhD, Robert Unavailable Unavai lable Allergies, Adverse Reactions, Alerts Substance Reaction Status Criticality No Known Allergies Active No Inform ation Medications Medication Instructions Dosage Effective Dates (start - stop) Status Comments GABAPENTIN (unknown strength) Not Available - Active HORTENCIA-BE (unknown strength) Not Available - Active IMITREX (unknown strength) Not Available - Active Procedures Procedure Date Office/Outpatient Visit,New, [facility] 2023 X-Ray Exam Lwr Spine, Min 4 Views X-Ray Exam Lwr Spine, Min 4 Views Advance Directives Directive Yes / No Effective Date File Name No Information Encounters Encounter Description Practice Location Reason(s) For Visit Diagnoses Date Provider Providers Copied on Encounter Office/Outpat ient Visit,New, [facility], [address], [place], [place], [id number], [place] tel:[phone] [facility] - [place] Spondylolisthe sis, lumbar regionSpinal stenosis, lumbar region with neurogenic claudication Shantelle Jones. [facility], [address] [facility] [address], [place], [address], [place]. tel:[phone] Referring Provider: Selvin Grewal [facility] [address] [place], [address]. tel:[phone] Family History Family Member Type Diagnosis Age At Onset Mother Problem (finding) Hypertension Father Problem (finding) Cancer, unknown type Father Problem (finding) Cardiovascular disease Payers Payer name Insurance type Covered democrat ID Octavia combs(s) Katia Individual And Family Plans [id number] Social History Type Description Quantity Date Captured Comments Alcohol Use Details No Caffeine Use Details Unknown Tobacco Use Status No Information Smoking Status Never smoker Non-Smoking Tobacco Use Details : No Details Available : No Details Available Sex Female Vital Signs Date / Time: Height Weight BMI Pulse Rate Blood Pressure Temperature Respiratory Rate Body Surface Area Head Circumference Head Circ. Percentile Wt./Yao. Percentile BMI percentile Pulse Ox Inhaled Ox 9:16 AM 65.60 in 72.938 kg (160.80 lbs) 26.2 7 kg/m eter (2) Chief Complaint And Reason For Visit No Information Reason For Referral Reason For Referral No Information History Of Present Illness Encounter Date Complaint History Of Prese nt Illness No Information Functional Status Date Functional Assessmen t No Information Instructions Date Instruction Additional Infor mation No Information Assessments Type Assessment Date assessment Spondylolisthesis, lumbar region assessment Spinal stenosis, lumbar region w ith neurogenic claudication Patient Care Teams Name Effective Dates (start - stop) Status Members No Information
--- OUTSIDE RECORDS SUMMARY | 2023-12-21 08:42 | XMS_ITS | Clinical Summary ---
Author Organization [facility] Address [place], [place] [address] Care Team Providers Care Digital Librarian Name Role Phone Agnes Fleming Brandin HERNANDEZ Primary Care Provider [phone] Allergies No known active allergies Medications Medication Sig Dispensed Refills Start Date End Date Status gabapentin (NEURONTIN) 600 mg tablet Take 600 mg by mouth three times daily. Active norethindrone, Contraceptive, (MICRONOR, 28,) 0.35 mg tablet Take 0.35 mg by mouth once daily. Active SUMAtriptan (IMITREX) 100 mg tablet Take 50 mg by mouth 2 times daily if needed for Migraine. Give at minimum 2hrs apart. Max Dose: 200mg per 24hrs. Active Active Problems Problem Noted Date Diagnosed Date Lumbar back pain with radicu lopathy affecting lower extremity 03/26/2023 Overview (07/18/2023): Oct 2022: right and left L4 Transforaminal Epidural steroid injection by Dr. Martinez in [place]. ~ June 2023: L4-L5 right and left TF epidural steroid injection by Dr. Carlos. 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 Encounters Date Type Department Care Team Description 12/20/2023 Travel 11/26/2023 Medical Messaging [place] [address] [place] [address] Naveen Carlos MD legs numb again 09/21/2023 1:45 PM CDT Office Visit [facility] [address] [place] [address] Florentino Saini-Bean Carmen MD Throat Problem (Elongated styloid process, next steps. Are Migraines related?) 09/21/2023 Travel from Last 3 Months Family History Medical History Relation Name Comments Factor V Leiden deficiency Child Protein S deficiency Child Lung cancer Father Seizures Father Seizures Mother Relation Name Status Comments Child Alive Father Mother Social History Tobacco Use Types Packs/Day Years Used Date Smoking Tobacco: Never Smokeless Tobacco: Never Tobacco Cessation:Counseling Given: Not Answered Alcohol Use Standard Drinks/Week Comments Not Currently 0 (1 standard drink = 0.6 oz pur e alcohol) Social Connections Answer Date Recorded Frequency of Communication with Friends and Fami ly Not on file 03/02/2023 Sex and Gender Information Value Date Recorded Sex Assigned at Not on file Gender Identity Not on file Sexual Orientation Not on file Obstetrics History Last Filed Vital Signs Vital Sign Reading Time Taken Comments Blood Pressure 116/74 08/24/2023 7:03 AM CDT Pulse 59 08/24/2023 7:03 AM CDT Temperature - - Respiratory Rate - - Oxygen Saturation 98% 08/24/2023 7:03 AM CDT Inhaled Oxygen Concentration - - Weight 73.7 kg (162 lb 6.4 oz) 08/24/2023 7:03 A M CDT Height - - Body Mass Index - - Plan of Treatment Upcoming Encounters Date Type Department Care Team (Late st Contact Info) Description 12/21/2023 9:00 AM CDT Office Visit [facility] [address] [place] [address] Naveen Carlos MD [address] [place] [address] Arrived Health Maintenance Due Date Last Done Comments Tdap 1980 Depression screening for age 12+ 1981 HIV for age 15-65 1984 BMI (ht and wt on same day) for age 18+ 08/20/1987 Hepatitis C screening for ag e 18-79 08/20/1987 Tetanus booster 1989 Colonoscopy through age 75 2014 Lipids for age 45-75 2014 Mammogram for age 45-75 2014 Zoster (shingles) series for age 50+ (1 of 2) 08/20/2019 COVID-19 vaccine series ( - 2024-25 season) 2023 03/01/2023 Influenza for age 50-64 11/21/2023 Pap test for age 21-65 08/18/2026 , 2023 Pneumococcal series for age 6-64 Aged Out No longer eligible b ased on patient's age to complete this topic Procedures Procedure Name Priority Date/Time Associated Diagnosis Comments AMB EPIDURAL STEROID INJECTION Routine 12/21/2023 8:01 AM CDT Lumbar back pain with radiculopathy affecting lower extremity Bilateral leg numbness HPV HIGH RISK Routine 2023 10:00 AM CDT from Last 3 Months or Most Recently Relevant to Health Maintenance Results * HPV HIGH RISK (2023 10:00 AM CDT) TYPE 16 Negative Negative 08/24/2023 8:10 AM CDT [facility] TYPE 18 Negative Negative 08/24/2023 8:10 AM CDT [facility] OTHER HIGH RISK TYPES Negative Negative 08/24/2023 8:10 AM CDT [facility] Other (Cervical) 2023 10:00 AM CDT 08/20/2023 10:27 AM CDT Narrative [facility] - 08/24/2023 8:10 AM CDT HPV types 16, 18, 31, 33, 35, 39, 45, 51, 52, 56, 58, 59, 66 and 68 DNA were undetectable or below the pre-set threshold. Methodology: Penelope Yadira 4800 HPV Test Jennifer Calhoun NP MICROBIOLOGY [facility] [address] [place] [address], from Last 3 Months or Most Recently Relevant to Health Maintenance Care Teams Digital Librarian Relationship Specialty Start Date End Date Agnes Fleming PA-C [address] [place], [place] [address] [address] PCP - General Physician Cooker Pie Filling 12/09/23
== END 2023-12-21 08:41 | disposition home or self-care (01) ==
LOC: INJ CL 08:40
PROVIDERS: PCP Physician Assistant Medical; Visit Provider Family Medicine
DX: M54.16 Radiculopathy, lumbar region (principal)
CPT/HCPCS: 64483; J1100; Q9966

== ENCOUNTER 2024-03-01 11:11 | Outpatient (CLI) | payer OTHER, SELFPAY | END 2024-03-01 11:12 | disposition home or self-care (01) | LOC: NFLDREF 03-02 11:42 | PROVIDERS: PCP Physician Assistant Medical; Referring Provider Physician Assistant Medical; Visit Provider Physician Assistant Medical | DX: R79.89 Other specified abnormal findings of blood chemistry (principal); R73.03 Prediabetes; R53.83 Other fatigue; Z13.29 Encounter for screening for other suspected endocrine disorder | CPT/HCPCS: 82306; 82607; 82728; 84443 ==

== ENCOUNTER 2024-08-01 07:33 | Emergency (ER) | payer OTHER, SELFPAY ==
--- OUTSIDE RECORDS SUMMARY | 2024-08-01 07:35 | XMS_ITS | Clinical Summary ---
Author Organization [facility] Address [address] [place] [address] Care Team Providers Care Welt Butter Hand Name Role Phone Fleming, Mukundsadesuraj Ghotra PA-C Primary Care Provider [phone] Allergies No known active allergies Medications gabapentin (NEURONTIN) 600 mg tablet Take 600 mg by mouth three times daily. Active SUMAtriptan (IMITREX) 100 mg tablet Take 50 mg by mouth 2 times daily if needed for Migraine. Give at minimum 2hrs apart. Max Dose: 200mg per 24hrs. Active Active Problems Problem Noted Date Diagnosed Date Lumbar back pain with radicu lopathy affecting lower extremity 03/26/2023 Overview (01/04/2024): Oct 2022: right and left L4 Transforaminal Epidural steroid injection by Dr. Martinez in [place]. ~ June 2023: L4-L5 right and left TF epidural steroid injection by Dr. Carlos. ~ Dec 2023: L4-L5 right and left TF epidural steroid injection by Dr. Carlos: good response with decreased leg numbness, but not resolved. 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 Gender Identity Not on file Sexual Orientation Not on file Obstetrics History Last Filed Vital Signs Vital Sign Reading Time Taken Comments Blood Pressure 129/82 06/06/2024 7:27 AM CDT Pulse 51 06/06/2024 7:27 AM CDT Temperature - - Respiratory Rate - - Oxygen Saturation 98% 06/06/2024 7:27 AM CDT Inhaled Oxygen Concentration - - Weight 76.6 kg (168 lb 14.4 oz) 06/06/2024 7:27 AM CDT Height - - Body Mass Index - - Plan of Treatment Health Maintenance Due Date Last Done Comments Tdap 1980 Depression screening for age 12+ 1981 HIV for age 15-65 1984 BMI (ht and wt on same day) for age 18+ 08/20/1987 Hepatitis C screening for age 18-79 08/20/1987 Tetanus booster 1989 Colonoscopy through age 75 2014 Lipids for age 45-75 2014 Mammogram for age 45-75 2014 Pneumococcal series for age 50+ (1 of 1 - PCV) 08/20/2019 Zoster (shingles) series for age 50+ (1 of 2) 08/20/2019 Influenza Vaccine (Season Ended) 2024 Pap test for age 21-65 08/18/2026 2023, 2023 COVID-19 vaccine series Completed 01/08/2024, 03/01 Procedures Procedure Name Priority Date/Time Associated Diagnosis Comments HPV HIGH RISK Routine 2023 10:00 AM CDT from Last 3 Months or Most Recently Relevant to Health Maintenance Results * HPV HIGH RISK (2023 10:00 AM CDT) TYPE 16 Negative Negative 08/24/2023 8:10 AM CDT [facility] TYPE 18 Negative Negative 08/24/2023 8:10 AM CDT [facility] OTHER HIGH RISK TYPES Negative Negative 08/24/2023 8:10 AM CDT [facility] Other (Cervical) 2023 10:00 AM CDT 08/20/2023 10:27 AM CDT Narrative [facility] 08/24/2023 8:10 AM CDT HPV types 16, 18, 31, 33, 35, 39, 45, 51, 52, 56, 58, 59, 66 and 68 DNA were undetectable or below the pre-set threshold. Methodology: Penelope Yadira 4800 HPV Test us Jennifer Calhoun INTELLIGENCE CLERK MICROBIOLOGY Final Res ult [facility] [address] [place], [place] [address] from Last 3 Months or Most Recently Relevant to Health Maintenance Insurance [facility] Care Teams Welt Butter Hand Relationship Specialty Start Date End Date Agnes Fleming PA-C [address] [place] [address] PCP - General Physician Irrigator Overhead 12/09/23
[2024-08-01 07:40] VITALS: BP 132/88; PULSE 59; RESP 18; TEMP 36.6; O2SAT 96; BMI 26.5
--- NOTE | 2024-08-01 08:03 | ED_ITS ---
HPI - Fall General Time Seen by Provider: 08:04 Date Seen: 08/01/24 Chief Complaint: Fall/Minor Trauma Stated Complaint: fell and hurt, neck, head Time Seen by Provider: 08/01/24 08:03 Source: patient and RN notes reviewed Mode of arrival: ambulatory Limitations: no limitations History of Present Illness HPI Narrative: This 53-year-old female is ambulatory into the ED with complaint of pain. She was standing at the bathroom sink this morning taking medicines for her migraine. She has had a migraine the last 2 days, notes she has not slept well because of it. She was standing at the counter taking gabapentin, migraine all and Excedrin. She took the pills in swallowed them, they felt like they became lodged in her esophagus, had severe sudden pain, she states the pain was excruciating. The next thing she was down with her but on the ground, her head and back were against the counter and vanity behind her. She notes severe pain in the back of her head, ongoing migraine, left neck pain, left chest wall pain, originally maybe felt some numbness tingling in the left arm but there is none now. Her left wrist was sore but she notes no sharp pain. Her left chest and back hurt with breathing. She states she is in significant pain. She has some nausea but feels like it is from the pain. Does not feel that she had any prodromal palpitations or heart arrhythmia. complaint: fall Related Data Home Medications ?Medication ?Instructions ?Recorded ?Confirmed migrerelief PO DAILY 06/29/23 07/17/24 tolterodine 2 mg capsule,extended 2 mg PO DAILY 03/01/24 07/17/24 release 24 hr Previous Rx's ?Medication ?Instructions ?Recorded sumatriptan succinate 100 mg tablet See Rx Instructions PO .COMPLEX #9 09/28/23 tabs gabapentin 300 mg capsule 600 mg (2 x 300 mg) PO 3XD #540 03/06/24 caps doxycycline hyclate 100 mg tablet 200 mg (2 x 100 mg) PO ONCE #2 tabs 07/17/24 ketorolac 10 mg tablet 10 mg PO QID PRN pain #20 tabs 08/01/24 Allergies Allergy/AdvReac Type Severity Reaction Status Date / Time oxybutynin AdvReac Intermediate Unknown Verified 08/01/24 10:12 misoprostol AdvReac Unknown Verified 08/01/24 10:12 Review of Systems Status of ROS: Reports: 6 or more systems reviewed and unremarkable except as noted in History and below [facility] Medical History Hx of migraines ?Z86.69 - Personal history of other diseases of the nervous system and sense organs (ICD-10) Family history of factor V Leiden mutation ?Z83.2 - Family history of diseases of the blood and blood-forming organs and certain disorders involving the immune mechanism (ICD-10) Family history of prothrombin gene mutation ?Z83.2 - Family history of diseases of the blood and blood-forming organs and certain disorders involving the immune mechanism (ICD-10) UTI (urinary tract infection) ?N39.0 - Urinary tract infection, site not specified (ICD-10) Surgical History History of trigger finger ?Z87.39 - Personal history of other diseases of the musculoskeletal system and connective tissue (ICD-10) History of breast augmentation ?Z98.82 - Breast implant status (ICD-10) History of eye surgery ?Z98.890 - Other specified postprocedural states (ICD-10) History of ?Z98.891 - History of uterine scar from previous surgery (ICD-10) Family History Daughter Prothrombin [id number] mutation Factor V Leiden Grandfather No problems noted. Father Stroke Mother High blood pressure Other Anxiety Diabetes High cholesterol Social History Narrative: SALE[place]. Smoking Status: Never smoker How often do you have a drink containing alcohol: never AUDIT-C Alcohol total score: 0 Non-prescribed substance use: denies use Exam Const: Vital Signs, click to edit/add: Vital Signs - 24 hr 08/01/24 07:40 08/01/24 08:36 Temperature 97.8 F Pulse Rate [Pulse Oximeter] 59 L 48 L Respiratory Rate 18 Blood Pressure [Ri ght Upper Arm] 132/88 Pulse Oximetry 96 Oxygen Delivery Me thod Room Air This 53-year-old female is alert, interactive, no apparent distress, sitting up on the bed, she stands up when I come in to show me where she is having some pain. She has normal face, atraumatic, conjugate gaze, sclera clear, speech normal. No midline tenderness of her neck but she screams out when I a touch left paraspinous area. Her upper extremities have full range of motion, no definite painful areas, the joints or fully mobile from shoulders down to fingers, strength is normal throughout both upper extremities. Lungs are clear, good air entry, no wheezing or crackles. CV regular rate and rhythm no murmur. There is no evidence of any chest wall trauma anteriorly or posteriorly. She was ambulatory into the ED of her own accord. Neck is mobile, normal sensation in her arms. Documenting provider has reviewed patient's vital signs: yes Course Course ED Course: It sounds as if the pain response probably gave her vasovagal reaction. She does agree with that but is in agreement to ensure normal labs, look at other causes of potential syncope. I do think there is more likely explanation rather than arrhythmia, ischemic disease, significant pulmonary embolus causing syncope. Will check lactate as well but doubt seizure activity. Will do imaging with head CT, cervical spine CT. Will look at a chest x-ray and will look at her left wrist. Clinically her wrist seems fine but she did note some soreness after the fall, do want to rule out occult fracture. Will give her IM Toradol 30 mg and give her 10 mg oral Flexeril at this time. Reevaluation(s) Time of Reevaluation #1: 09:28 Reevaluation #1: Have reviewed with patient her normal head CT and her normal cervical spine CT. Did review the elevated D-dimer, she is heterozygous for factor 5 Leiden. Will be doing chest CT PE protocol, she will have an IV established. Is feeling better after the Toradol and Flexeril. Time of Reevaluation #2: 10:32 Reevaluation #2: Have reviewed there are no blood clots under CT, she is happy to hear this. She does feel musculoskeletal discomfort. We discussed that this may continue, likely some traumatic change from the fall but there is no evidence of any fractures. She asked about concussion, she states she just feels a little out of it. If she has ongoing symptoms, certainly could have a concussion. Will give her handout, if concerns can follow up in clinic for recheck. We did discuss her bradycardia here, will have her do a Zio patch and follow up in clinic. If she has significant arrhythmia or bradycardia, this will hopefully be documented by the Zio patch and Cardiology can be consulted outpatient. discussed Flexeril and Toradol, she will obtain these from [facility]. Vital Signs Vital signs: Initial Vital Signs Temperature 97.8 F 08/01/24 07:40 Temperature Source Temporal Artery Scan 08/01/24 07:40 Pulse Rate 59 L 08/01/24 07:40 Respiratory Rate 18 08/01/24 07:40 Blood Pressure 132/88 08/01/24 07:40 Blood Pressure Mean 102 08/01/24 07:40 Pulse Oximetry 96 08/01/24 07:40 Oxygen Delivery Method Room Air 08/01/24 07:40 Vital Signs Temperature 97.8 F 08/01/24 07:40 Pulse Rate 59 L 08/01/24 07:40 Respiratory Rate 18 08/01/24 07:40 Blood Pressure 132/88 08/01/24 07:40 Pulse Oximetry 96 08/01/24 07:40 Oxygen Delivery Method Room Air 08/01/24 07:40 Temperature 97.8 F 08/01/24 07:40 Pulse Rate 48 L 08/01/24 08:36 Respiratory Rate 18 08/01/24 07:40 Blood Pressure 132/88 08/01/24 07:40 Pulse Oximetry 96 08/01/24 07:40 Oxygen Delivery Method Room Air 08/01/24 07:40 Medications Administered Medications: Discontinued Medications Generic Name Dose Route Start Last Admin Trade Name Freq PRN Reason Stop Dose Admin Cyclobenzaprine HCl 10 mg 08/01/24 08:12 08/01/24 08:21 Cyclobenzaprine Hcl 10 Mg Tablet PO 08/01/24 08:13 10 mg ONCE ONE Administration Ketorolac Tromethamine 30 mg 08/01/24 08:12 08/01/24 08:21 Ketorolac 30 Mg/Ml Inj IM 08/01/24 08:13 30 mg ONCE ONE Administration MDM - Fall Lab Data Attestation: I reviewed the patient's lab results. Labs: Lab Results 08/01/24 Range/Units 08:41 WBC 7.56 (4.50-11.00) K/uL RBC 4.72 (4.00-5.20) m/uL Hgb 13.7 (12.0-16.0) gm/dL Hct 42.5 (33.0-51.0) % MCV 90 (80-100) fL MCH 29 (26-34) pg MCHC 32 (32-36) gm/dL RDW Coeff of Nehemiah 12.9 (11.5-15.5) % Plt Count 353 (140-440) K/uL Neut % (Auto) 76.8 H (42.0-72.0) % Lymph % (Auto) 16.0 L (20-44) % [place] % (Auto) 5.3 (0.0-11.0) % Eos % (Auto) 1.2 (0.0-7.0) % Baso % (Auto) 0.4 (0.0-3.0) % Neut # (Auto) 5.80 (1.7-7.0) K/uL Lymph # (Auto) 1.20 (0.90-2.90) K/uL [place] # (Auto) 0.40 (0.00-0.90) K/UL Eos # (Auto) 0.09 (0.00-0.50) K/uL Baso # (Auto) 0.03 (0.00-0.30) K/uL Abs Immat Gran (auto) 0.02 (0.00-0.30) K/uL Imm/Tot Granulo (auto) 0.3 % D-Dimer Quant (PE/DVT) 1.02 H (0.00-0.50) ug/ml Sodium 139 (135-149) mmol/L Potassium 4.7 (3.6-5.1) mmol/L Chloride 102 (96-114) mmol/L Carbon Dioxide 26 (20-32) mmol/L Anion Gap 11 (7-15) mEq/L BUN 18 (7-30) mg/dL Creatinine 0.8 (0.5-1.5) mg/dL Estimated Creat Clear 78.18 Estimated GFR 88 ml/min Glucose 120 H (60-115) mg/dL Lactate 2.2 H (0.5-1.9) mmol/L Calcium 9.9 (8.4-10.6) mg/dL Troponin I < 0.01 (0.01-0.04) ng/mL Imaging Data CT scan - head: Attestation: I have reviewed the pertinent imaging results. Radiologist's impression: Patient: ANA SIM Facility:?[facility] Patient ID:?[id number] Site Patient ID:?[id number]. Site :?1970 Study:?CT-Head WITHOUT-08/01/2024 9:16:54 AM Ordering Physician:?Kerline Johnson Final Report: INDICATION: Fall, pain. TECHNIQUE: CT head without contrast. COMPARISON: None. FINDINGS: CSF spaces: Within normal limits for age. Brain parenchyma and extra-axial spaces: The blair-white differentiation is normal. No sign of mass, hemorrhage, or midline shift. No extra-axial fluid c ollection. Skull base and calvarium: The visualized paranasal sinuses and mastoid air cells demonstrate no acute or significant findings. The visualized orbits are grossly unremarkable. No skull fractures. IMPRESSION: Unremarkable noncontrast head CT. Please note that all CT scans at this facility use dose modulation, iterative reconstruction, and/or weight-based dosing when appropriate to reduce radiation dose to as low as reasonably achievable. Dictated by Rusty Griffin MD @ 08/01/2024 9:19:57 AM (Electronic Signature) CT cervical spine: Attestation: I have reviewed the pertinent imaging results. Radiologist's impression: Patient: ANA SIM Facility:?[facility] Patient ID:?[id number] Site Patient ID:?[id number]. Site :?1970 Study:?CT-Spine Cervical WITHOUT-08/01/2024 9:16:37 AM Ordering Physician:?Kerline Johnson Final Report: INDICATION: Fall, pain. TECHNIQUE: CT cervical spine without contrast. COMPARISON: None. FINDINGS: Vertebrae: Alignment is normal. There are no fractures or suspicious bony lesions. Discs and facet joints: Disc spaces and facets demonstrate mild multilevel degenerative changes.. Extraspinal findings: Prevertebral soft tissues, visualized airway, and visualized lungs are unremarkable. IMPRESSION: No traumatic injury identified in the cervical spine. Please note that all CT scans at this facility use dose modulation, iterative reconstruction, and/or weight-based dosing when appropriate to reduce radiation dose to as low as reasonably achievable. Dictated by Rusty Griffin MD @ 08/01/2024 9:21:56 AM (Electronic Signature) Chest x-ray: Attestation: I have reviewed the pertinent imaging results. My impression: Do not appreciate any traumatic or acute cardiopulmonary change on this chest x-ray, wait radiology over read. Radiologist's impression: Patient: ANA SIM Facility:?[facility] Patient ID:?[id number] Site Patient ID:?[id number]. Site :?1970 Study:?XRay-Chest 2v-08/01/2024 9:33:48 AM Ordering Physician:Heather Johnson Final Report: INDICATION: Pain. Injury. COMPARISON: None TECHNIQUE: PA and lateral views of the chest were acquired FINDINGS: TUBES AND LINES: None. HEART AND MEDIASTINUM: The heart size is normal. The mediastinal contour appears normal for patient age. LUNGS AND PLEURAL SPACES: The lungs appear normal.The pleural spaces are unremarkable. OSSEOUS STRUCTURES: Age-appropriate appearance. No acute focal finding. IMPRESSION: No evidence of active pulmonary disease. No posttraumatic findings identified Dictated by Alexandr Shah MD @ 08/01/2024 9:40:50 AM (Electronic Signature) XR left wrist: Attestation: I have reviewed the pertinent imaging results. My impression: No acute fracture on my preliminary review. Radiologist's impression: Patient: ANA SIM Facility:?[facility] Patient ID:?[id number] Site Patient ID:?[id number]. Site :?1970 Study:?XRay-Extremity Left 4V-08/01/2024 9:33:10 AM Ordering Physician:?Kerline Johnson Final Report: Indication: Injury Technique: A total of four views of the left wrist were acquired. Comparison: None Findings: Bones: Alignment is normal. No fractures or bone lesions. Incidental bone island in the scaphoid Joint spaces: Unremarkable. Soft tissues: Unremarkable. Impression: No acute fracture, dislocation or destructive process. Dictated by Alexandr Shah MD @ 08/01/2024 9:40:01 AM (Electronic Signature) CT scan - chest: Attestation: I have reviewed the pertinent imaging results. Radiologist's impression: Patient: ANA SIM Facility:?[facility] Patient ID:?[id number] Site Patient ID:?[id number]. Site :?1970 Study:?CT-Chest Angio PE 95CC ISOVUE 370-08/01/2024 10:15:45 AM Ordering Physician:?Kerline Johnson Final Report: INDICATION: ?syncopal episode, elevated d dimer, heterozygous factor 5. (Sic) COMPARISON: None available. TECHNIQUE: CT pulmonary angiography with 95 cc of Isovue 370 intravenous contrast. Reconstructed multiplanar MIP series were done. Please note that all CT scans at this facility use dose modulation, iterative reconstruction, and/or weight-based dosing when appropriate to reduce radiation dose to as low as reasonably achievable. FINDINGS: THORAX Pulmonary Arterial Vasculature: Opacification of the pulmonary arterial tree is adequate for assessment of pulmonary embolism. No intraluminal pulmonary arterial filling defect is identified to indicate a pulmonary embolism. Visualized Lower Neck: No lower cervical adenopathy. Lungs: No acute pulmonary findings. Right middle lobe atelectasis associated with bronchiectasis. No obstructing lesion is identified. A bilateral mosaic attenuat ion pattern is most likely due to air trapping due to hypoventilatory changes given evidence of a suboptimal inspiratory effort, specifically anterior bowing of the posterior membranous trachea. Pleura: No pleural effusion. No pneumothorax. Mediastinum: Thoracic aorta and pulmonary trunk are normal in caliber. Heart and pericardium are without significant findings. Trachea and esophagus are normal in appearance. No mediastinal lymphadenopathy. ABDOMEN Visualized Upper Abdomen: No significant findings. Incidental note is made of a splenule. SKELETON AND BODY WALL No acute or significant incidental findings. Bilateral subpectoral breast implants are noted incidentally. IMPRESSION: No evidence of pulmonary embolism. Incidental findings described in the body of the report. Please note that all CT scans at this facility use dose modulation, iterative reconstruction, and/or weight-based dosing when appropriate to reduce radiation dose to as low as reasonably achievable. Dictated by Donte Marino MD @ 08/01/2024 10:24:42 AM (Electronic Signature) ECG Data Attestation: I personally reviewed and interpreted this ECG as follows: (Sinus bradycardia, 44 beats per minute. Poor R-wave progression anterior precordial leads but no active ST segment change or T-wave change.) ECG interpretation date: 08/01/24 ECG interpretation time: 08:46 Prior ECG tracings: not available for review Discharge Plan Discharge Clinical Impression: Syncope, Closed head injury, Acute neck pain, Acute chest wall pain, Acute pain of left wrist, Bradycardia Patient Disposition: Home, Self-Care Condition: Stable Instructions: Wrist Injury (ED), Syncope (ED), Concussion (ED), Chest Wall Pain (ED), Acute Neck Pain (ED) Additional Instructions: Rest, can increase activity as tolerated. Use Tylenol 1000 mg 3 times a day baseline for pain. Have written for Flexeril from [facility]. Had to send the Toradol to your pharmacy. Can try ice to painful areas. Do recommend follow-up in your clinic, schedule an appointment, especially if you have ongoing concerns from potential head injury. Complete the Zio patch as per instructions. We can get the Zio patch results sent to your primary, please make sure we have the appropriate primary provider to send 2. Activity Level: No Restrictions and Activity as Tolerated Prescriptions: New ketorolac 10 mg tablet 10 mg PO QID PRN (Reason: pain) Qty: 20 0RF Rx Instructions: maximum total duration of 5 days from all oral, intranasal, or parenteral formulations No Action migrerelief PO DAILY sumatriptan succinate 100 mg tablet See Rx Instructions PO .COMPLEX Qty: 9 0RF Rx Instructions: take 1 tab at onset of headache; if no relief, may repeat 1 tab after at least 2 hrs; max = 2 tabs/24 hrs PO tolterodine 2 mg capsule,extended release 24hr 2 mg PO DAILY doxycycline hyclate 100 mg tablet 200 mg PO ONCE Qty: 2 0RF gabapentin 300 mg capsule 600 mg PO 3XD Qty: 540 3RF Follow Up/Referrals: Agnes Fleming PA-C [Primary Care Provider] - Stand Alone Forms: [facility] Instructions
--- NOTE | 2024-08-01 08:12 | CRLHL7_ITS ---
For Patients: As a result of the Cures Act, medical imaging exams and procedure reports are released immediately into your electronic medical record. You may view this report before your referring provider. If you have questions, please contact your health care provider. Indication: Injury Technique: A total of four views of the left wrist were acquired. Comparison: None Findings: Bones: Alignment is normal. No fractures or bone lesions. Incidental bone island in the scaphoid Joint spaces: Unremarkable. Soft tissues: Unremarkable. Impression: No acute fracture, dislocation or destructive process. Dictated by Alexandr Shah MD @ 08/01/2024 9:40:01 AM (Electronically Signed)
--- NOTE | 2024-08-01 08:13 | CRLHL7_ITS ---
For Patients: As a result of the Century Cures Act, medical imaging exams and procedure reports are released immediately into your electronic medical record. You may view this report before your referring provider. If you have questions, please contact your health care provider. INDICATION: Fall, pain. TECHNIQUE: CT head without contrast. COMPARISON: None. FINDINGS: CSF spaces: Within normal limits for age. Brain parenchyma and extra-axial spaces: The blair-white differentiation is normal. No sign of mass, hemorrhage, or midline shift. No extra-axial fluid collection. Skull base and calvarium: The visualized paranasal sinuses and mastoid air cells demonstrate no acute or significant findings. The visualized orbits are grossly unremarkable. No skull fractures. IMPRESSION: Unremarkable noncontrast head CT. Please note that all CT scans at this facility use dose modulation, iterative reconstruction, and/or weight-based dosing when appropriate to reduce radiation dose to as low as reasonably achievable. Dictated by Rusty Griffin MD @ 08/01/2024 9:19:57 AM (Electronically Signed)
--- NOTE | 2024-08-01 08:13 | CRLHL7_ITS ---
For Patients: As a result of the Cures Act, medical imaging exams and procedure reports are released immediately into your electronic medical record. You may view this report before your referring provider. If you have questions, please contact your health care provider. INDICATION: Pain. Injury. COMPARISON: None TECHNIQUE: PA and lateral views of the chest were acquired FINDINGS: TUBES AND LINES: None. HEART AND MEDIASTINUM: The heart size is normal. The mediastinal contour appears normal for patient age. LUNGS AND PLEURAL SPACES: The lungs appear normal.The pleural spaces are unremarkable. OSSEOUS STRUCTURES: Age-appropriate appearance. No acute focal finding. IMPRESSION: No evidence of active pulmonary disease. No posttraumatic findings identified Dictated by Alexandr Shah MD @ 08/01/2024 9:40:50 AM (Electronically Signed)
--- NOTE | 2024-08-01 08:13 | CRLHL7_ITS ---
For Patients: As a result of the Cures Act, medical imaging exams and procedure reports are released immediately into your electronic medical record. You may view this report before your referring provider. If you have questions, please contact your health care provider. INDICATION: Fall, pain. TECHNIQUE: CT cervical spine without contrast. COMPARISON: None. FINDINGS: Vertebrae: Alignment is normal. There are no fractures or suspicious bony lesions. Discs and facet joints: Disc spaces and facets demonstrate mild multilevel degenerative changes.. Extraspinal findings: Prevertebral soft tissues, visualized airway, and visualized lungs are unremarkable. IMPRESSION: No traumatic injury identified in the cervical spine. Please note that all CT scans at this facility use dose modulation, iterative reconstruction, and/or weight-based dosing when appropriate to reduce radiation dose to as low as reasonably achievable. Dictated by Rusty Griffin MD @ 08/01/2024 9:21:56 AM (Electronically Signed)
[2024-08-01] MEDS: KETOROLAC 30 MG/ML inj IM (08:21)
[2024-08-01] MEDS: CYCLOBENZAPRINE HCL 10 MG TABLET PO (08:21)
--- OUTSIDE RECORDS SUMMARY | 2024-08-01 08:25 | XMS_ITS | Clinical Summary ---
Author Organization [facility] Address [address] [place] [id number] Care Team Providers Care Newspaper Stuffer Name Role Phone Fleming, Mukundsadesuraj Ghotra PA-C Primary Care Provider [phone] Allergies No known active allergies Medications gabapentin [...] Epidural steroid injection by Dr. Martinez in [place]. ~ June 2023: L4-L5 right and left TF epidural steroid injection by Dr. Carlos. ~ Dec 2023: L4-L5 right and left TF epidural steroid injection by Dr. Carlos: good response with decreased leg numbness, but not resolved. 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 Gender Identity Not on file Sexual Orientation [...] 16 Negative Negative 08/24/2023 8:10 AM CDT [facility] TYPE 18 Negative Negative 08/24/2023 8:10 AM CDT [facility] OTHER HIGH RISK TYPES Negative Negative 08/24/2023 8:10 AM CDT [facility] Other (Cervical) 2023 10:00 AM CDT 08/20/2023 10:27 AM CDT [facility] 08/24/2023 8:10 AM CDT HPV types 16, 18, 31, 33, 35, 39, 45, 51, 52, 56, 58, 59, 66 and 68 DNA were undetectable or below the pre-set threshold. Methodology: Penelope Yadira 4800 HPV Test us Jennifer Calhoun EARLY HEAD START TEACHER MICROBIOLOGY Final Res ult [facility] [address] [place], [place] [address] from Last 3 Months or Most Recently Relevant to Health Maintenance Insurance [facility] IN[employer] AND FAMILY PLANS Care Teams Newspaper Stuffer Relationship Specialty Start Date End Date Agnes Fleming PA-C [address] [place] [id number] PCP - General Physician Contract Administrative Assistant 12/09/23
[2024-08-01 08:36] VITALS: PULSE 48
[2024-08-01 08:46] LABS: Lactate* 2.2 mmol/L (0.5-1.9)
[2024-08-01 08:47] LABS: Basophils Absolute Auto 0.03 K/uL (0.00-0.30); Basophils Percent Auto 0.4 % (0.0-3.0); Eosinophils Absolute Auto 0.09 K/uL (0.00-0.50); Eosinophils Percent Auto 1.2 % (0.0-7.0); Hematocrit 42.5 % (33.0-51.0); Hemoglobin* 13.7 gm/dL (12.0-16.0); Immature Granulocytes Abs Auto 0.02 K/uL (0.00-0.30); Immature Granulocytes Pct Auto 0.3 %; Mean Corpuscular HGB Conc 32 gm/dL (32-36); Mean Corpuscular Hemoglobin 29 pg (26-34); Mean Corpuscular Volume 90 fL (80-100); Monocytes Percent Auto 5.3 % (0.0-11.0); Neutrophils Percent Auto 76.8 % (42.0-72.0); Platelet Count* 353 K/uL (140-440); RDW Coefficient of Variation % 12.9 % (11.5-15.5); Red Blood Count 4.72 m/uL (4.00-5.20); White Blood Count* 7.56 K/uL (4.50-11.00)
[2024-08-01 08:53] LABS: Slide Review Reflex No
[2024-08-01 09:15] LABS: Chloride* 102 mmol/L (96-114); Potassium* 4.7 mmol/L (3.6-5.1); Sodium* 139 mmol/L (135-149)
[2024-08-01 09:18] LABS: Anion Gap 11 mEq/L (7-15); Blood Urea Nitrogen* 18 mg/dL (7-30); Calcium* 9.9 mg/dL (8.4-10.6); Carbon Dioxide* 26 mmol/L (20-32); Creatinine* 0.8 mg/dL (0.5-1.5); Est. Creatinine Clearance* 78.18; Estimated Glomerular Filt Rate 88 ml/min; Glucose* 120 mg/dL (60-115)
[2024-08-01 09:21] LABS: D Dimer Quantitative* 1.02 ug/ml (0.00-0.50)
--- NOTE | 2024-08-01 09:31 | CRLHL7_ITS ---
For Patients: As a result of the Century Cures Act, medical imaging exams and procedure reports are released immediately into your electronic medical record. You may view this report before your referring provider. If you have questions, please contact your health care provider. INDICATION: ?syncopal episode, elevated d dimer, heterozygous factor 5. (Sic) COMPARISON: None available. TECHNIQUE: CT pulmonary angiography with 95 cc of Isovue 370 intravenous contrast. Reconstructed multiplanar MIP series were done. Please note that all CT scans at this facility use dose modulation, iterative reconstruction, and/or weight-based dosing when appropriate to reduce radiation dose to as low as reasonably achievable. FINDINGS: THORAX Pulmonary Arterial Vasculature: Opacification of the pulmonary arterial tree is adequate for assessment of pulmonary embolism. No intraluminal pulmonary arterial filling defect is identified to indicate a pulmonary embolism. Visualized Lower Neck: No lower cervical adenopathy. Lungs: No acute pulmonary findings. Right middle lobe atelectasis associated with bronchiectasis. No obstructing lesion is identified. A bilateral mosaic attenuation pattern is most likely due to air trapping due to hypoventilatory changes given evidence of a suboptimal inspiratory effort, specifically anterior bowing of the posterior membranous trachea. Pleura: No pleural effusion. No pneumothorax. Mediastinum: Thoracic aorta and pulmonary trunk are normal in caliber. Heart and pericardium are without significant findings. Trachea and esophagus are normal in appearance. No mediastinal lymphadenopathy. ABDOMEN Visualized Upper Abdomen: No significant findings. Incidental note is made of a splenule. SKELETON AND BODY WALL No acute or significant incidental findings. Bilateral subpectoral breast implants are noted incidentally. IMPRESSION: No evidence of pulmonary embolism. Incidental findings described in the body of the report. Please note that all CT scans at this facility use dose modulation, iterative reconstruction, and/or weight-based dosing when appropriate to reduce radiation dose to as low as reasonably achievable. Dictated by Donte Marino MD @ 08/01/2024 10:24:42 AM (Electronically Signed)
[2024-08-01 09:32] LABS: Troponin I* < 0.01 ng/mL (0.01-0.04)
== END 2024-08-01 11:11 | disposition home or self-care (01) ==
PROVIDERS: Emergency Provider Family Medicine; PCP Physician Assistant Medical
DX: R55 Syncope and collapse (principal); S09.90XA Unspecified injury of head, initial encounter; M54.2 Cervicalgia; R07.89 Other chest pain; M25.532 Pain in left wrist; W18.00XA Striking against unspecified object with subsequent fall, initial encounter
CPT/HCPCS: 36415; 70450; 71046; 71275; 72125; 73110; 80048; 83605; 84484; 85025; 85379; 93005; 93246; 96372; 99285; A9270; J1885; Q9967

== ENCOUNTER 2024-08-22 08:00 | Outpatient (RCR) | payer OTHER, SELFPAY | END 2024-10-10 15:12 | disposition home or self-care (01) | PROVIDERS: PCP Physician Assistant Medical; Visit Provider Family Medicine | DX: M54.16 Radiculopathy, lumbar region (principal); R20.0 Anesthesia of skin; Z51.89 Encounter for other specified aftercare | CPT/HCPCS: 97012; 97032; 97110; 97140; 97161 ==

== ENCOUNTER 2024-08-24 11:05 | Outpatient (CLI) | payer OTHER, SELFPAY | END 2024-08-24 11:06 | disposition home or self-care (01) | LOC: NFLDREF 08-26 07:48 | PROVIDERS: PCP Physician Assistant Medical; Referring Provider Physician Assistant Medical; Visit Provider Physician Assistant Medical | DX: R79.89 Other specified abnormal findings of blood chemistry (principal); R53.83 Other fatigue; F07.81 Postconcussional syndrome; D68.51 Activated protein C resistance; G43.109 Migraine with aura, not intractable, without status migrainosus; Z20.818 Contact with and (suspected) exposure to other bacterial communicable diseases | CPT/HCPCS: 82306; 82607; 82728; 86618 ==

== ENCOUNTER 2024-11-21 12:44 | Outpatient (CLI) | payer OTHER, SELFPAY ==
--- NOTE | 2024-11-21 13:00 | CRLHL7_ITS ---
For Patients: As a result of the Century Cures Act, medical imaging exams and procedure reports are released immediately into your electronic medical record. You may view this report before your referring provider. If you have questions, please contact your health care provider. INDICATION: BILATERAL SCREENING MAMMOGRAM W/IMPLANTS, ASYMPTOMATIC 54 Y/O FEMALE COMPARISON: REESTABLISH BASELINE TECHNIQUE: Digital mammogram in CC and MLO projections including computer-aided detection (CAD) and tomosynthesis. BREAST COMPOSITION: The breasts are heterogeneously dense, which may obscure small masses. FINDINGS: No suspicious findings. ASSESSMENT: BI-RADS 2 Benign RECOMMENDATION: Annual screening mammogram. A lay language report of this examination will be provided to the patient. Dictated by: Jose Hammonds MD @ 11/22/2024 09:45:52 (Electronically Signed)
== END 2024-11-21 12:45 | disposition home or self-care (01) ==
LOC: MAMMO 12:45
PROVIDERS: PCP Physician Assistant Medical; Visit Provider Physician Assistant Medical
DX: Z12.31 Encounter for screening mammogram for malignant neoplasm of breast (principal); R92.333 Mammographic heterogeneous density, bilateral breasts
CPT/HCPCS: 77063; 77067

== ENCOUNTER 2025-03-06 12:57 | Outpatient (CLI) | payer OTHER, SELFPAY ==
[2025-03-06] MEDS: PERFLUTREN LIPID MICROSPHERES 2 ML VIAL IVP (13:32)
--- NOTE | 2025-03-06 13:58 | P.STN_ITS ---
Stress Test Note Date Date of test: 03/06/25 Providers Referring provider: Jovan Quintero Primary care provider: Agnes Fleming Stress test physician: Juan Miguel Faustin Stress Test Note Stress test ordered: Stress Echo Indication for test: Chest pain Stress test medicine: Definity Results discussion: This very nice patient presents for the above test, after discussion the risks benefits and side effects of the test, patient would like to continue. Cardiac stress test medical history form is reviewed entirely. Pretest EKG shows normal sinus rhythm with a ventricular rate of 43, appears to be sinus bradycardia, blood pressure 142 and 76. Standard Savage protocol is employed over a time cou rse of 9 minutes. Test is terminated because of fulfillment of protocol, maximum heart rate was 151 which is 1 on his 7% of the maximum, she did have a little bit of ST wave depression, of 1 mm inferiorly and laterally, from her baseline abnormalities noted. None is diagnostic of ischemia. Preliminary echo, myself the tech, did not show any huge wall motion abnormalities final read by Cardiology pending. Impression: Negative electrographic portion stress echo, the good exercise tolerance is noted. Follow up suggested: Await, echo portion of test, clinical correlation with this will be needed.
[2025-03-06 15:24] VITALS: BP 132/68; PULSE 62; RESP 16; O2SAT 98
== END 2025-03-06 12:58 | disposition home or self-care (01) ==
LOC: STRESS 12:58
PROVIDERS: PCP Physician Assistant Medical; Visit Provider Family Medicine
DX: R07.89 Other chest pain (principal); I07.1 Rheumatic tricuspid insufficiency
CPT/HCPCS: 93016; 93325; 93351; Q9957